=== PATIENT | female | born 1960 | race Caucasian/White ===

== ENCOUNTER 2022-12-27 10:11 | Emergency (ER) | payer MEDICAID, SELFPAY ==
--- NOTE | ~2022-12-27 | US_ITS ---
EXAMINATION: US VENOUS ULTRASOUND WITH DOPPLER LOWER EXTREMITY, RIGHT CLINICAL INFORMATION: Pain. Concern for clot COMPARISON: None available. TECHNIQUE: Ultrasound of the deep veins is performed from the hip to the calf with compression sonography and color and pulse Doppler assessment. Spectral analysis with color-flow imaging is performed. FINDINGS: There is normal venous compression and respiratory variation and augmented flow. The visualized common femoral vein, superficial femoral vein, profunda femoral vein, popliteal vein, and the trifurcation region shows no evidence of deep venous thrombosis. There is no significant popliteal fossa cyst. If the patient's symptoms persist, followup ultrasound in 5 days 7 days might be of value to exclude proximal propagation from a non-visualized calf vein. US/US venous duplex LE RT IMPRESSION: No DVT demonstrated in the right lower extremity.
[2022-12-27 10:30] VITALS: BP 182/87; PULSE 77; RESP 16; TEMP 36.7; O2SAT 96; BMI 37.1
--- NOTE | 2022-12-27 10:37 | ED_ITS ---
HPI - General Adult General Chief complaint: Extremity Problem Stated complaint: r knee pain Time Seen by Provider: 12/27/22 10:36 Source: patient and family (daughter) Mode of arrival: ambulatory Limitations: no limitations History of Present Illness HPI narrative: Patient is a 62 year old assigned female at with a history of varicose veins presenting to the emergency department today with right calf pain. Patient states that starting yesterday she began to have right calf pain that felt sharp in nature. Patient states that she has never followed up with a doctor for her veins. Patient denies any dizziness, lightheadedness, abdominal pain, nausea, vomiting, fever, chills, blurry vision, double vision, loss of vision, chest pain, difficulty breathing, shortness of breath, back pain, night sweats, pain with urination, increased urinary frequency, increased urinary urgency, blood in her urine or stool, syncope or a near syncopal episode, recent trauma or falls, bowel incontinence, bladder incontinence, bowel retention, bladder retention, or any other complaints at this time. Onset (ago): day(s) (1) Location: right and lower extremity Radiation: non-radiation Severity: mild Severity scale (1-10): 3 Quality: stabbing Pain Consistency: intermittent Relieving factors: none Exacerbating factors: none Associated symptoms: denies other symptoms Treatments prior to arrival: other (diclofenac gen) Related Data Allergies Allergy/AdvReac Type Severity Reaction Status Date / Time No Known Allergies Allergy Verified 12/27/22 10:29 Review of Systems Constitutional: Constitutional: Reports no additional constitutional complaints, Denies chills, Denies fever(s) and Denies night sweats Eyes: Eyes: Reports no additional eye complaints, Denies blurry vision, Denies change in vision, Denies diplopia, Denies eye discharge, Denies loss of vision and Denies eye pain ENT: Denies dizziness Cardiovascular: Cardiovascular: Reports no additional cardiovascular complaints, Denies chest pain, Denies lightheadedness, Denies Loss of Consciousn ess and Denies dyspnea Respiratory: Respiratory: Reports no additional respiratory complaints and Denies dyspnea Gastrointestinal: Gastrointestinal: Reports no additional gastrointestinal complaints, Denies abdominal pain, Denies melena, Denies hematochezia, Denies change in bowel habits and Denies change in stool character Genitourinary: Genitourinary: Denies hematuria, Denies urinary frequency, Denies dysuria, Denies urinary incontinence, Denies urinary hesitancy and Denies urinary urgency Musculoskeletal: Musculoskeletal: Reports no additional musculoskeletal complaints, Denies numbness and Denies tingling Comments: right lower leg pain Neurologic: Denies dizziness, Denies loss of vision, Denies numbness and Denies tingling Psychiatric: Psychiatric: Reports no additional psychiatric complaints Endocrine: Endocrine: Reports no additional endocrine complaints Hematologic/Lymphatic: Hematologic/Lymphatic: Reports no additional hematologic/lymphatic complaints Allergic/Immunologic: Allergic/Immunologic: Reports no additional allergic/immunologic complaints PMFSH Past Medical History Attestation statement: The following information was validated with the patient. (all information validated with the patient's daughter) Source: old records reviewed, obtained from family (patient's daughter) and nursing notes reviewed Social History Social History Advance Directives: No Physical Exam ED Vital Signs: Vital Signs - 24 hr 12/27/22 10:30 Temperature 98.1 F Pulse Rate 77 Respiratory Rate 16 Blood Pressure 182/87 H Pulse Oximetry 96 Oxygen Delivery Method Room Air BMI result Body Mass Index 37.1 Const General: cooperative, no acute distress, alert and awake Nutritional Appearance: well nourished Orientation/consciousness: patient oriented x3 Limitations: no limitations HENMT Head: Yes normal to inspection and Yes atraumatic Ears: hearing grossly normal bilaterally and external ears normal General nose exam: Normal external nose present, no nasal discharge noted and no epistaxis Face and sinus: Yes normal facial exam, No abrasion and No laceration Mouth: Normal oral and palatal mucosa present, no drooling and no muffled voice Eyes General: appearance normal, both eyes and all related structures Periorbital: periorbital findings normal Eyelids: Yes eyelids normal Conjunctivae: conjunctivae normal Pupils: Equal, round and reactive pupils present EOM: EOMs intact bilaterally Neck Neck: Yes normal visual inspection, Yes full ROM and Yes no lymphadenopathy Chest Chest palpation & inspection: normal inspection of the chest Resp Effort & Inspection: normal respiratory effort and able to speak in complete sentences Auscultation: clear to auscultation bilaterally Cardio Rate: regular rate GI Inspection: Yes normal to inspection Neuro General: patient oriented x3 and moves all extremities Cranial nerves: Yes Equal, round and reactive pupils present Cognition (Neuro): normal cognition Motor exam (neuro): 5/5 motor strength present throughout Sensory Exam: Normal double simultaneous stimulation for sensation Coordination: [id number] test normal Extrem General: Yes normal to inspection, Yes full ROM and Yes capillary refill normal Psych Appearance: grossly normal Mental Status: mental status grossly normal Affect: normal affect Attitude: cooperative Thought process: Normal thought process present Thought content: Normal thought content present Insight: Good insight present (Psych) Medical Decision Making Medical Decision Making MDM Narrative: Patient is a 62 year old assigned female at with a history of varicose veins presenting to the emergency department today with right lower leg pain. Patient's physical exam showed right lower leg varicose veins but was otherwise unremarkable. Patient's right lower leg US showed no acute process. I explained my physical exam findings as well as all test results to the patient and the patient's daughter. I answered all questions asked by the patient and the patient's daughter. I stressed the importance of the patient taking her medication as prescribed. I stressed the importance of the patient following up with her primary care provider and a vascular specialist. I stressed the importance of the patient returning to the emergency department immediately if her symptoms were to worsen or if she were to develop any dizziness, shortness of breath, difficulty breathing, chest pain, blurry vision, loss of vision, nausea, vomiting, abdominal pain, fever, chills, back pain, or any other complaints. Patient and the patient's daughter verbalized agreement and und erstanding with this treatment plan and discharge. Differential Diagnosis Differential Diagnoses: The differential diagnosis associated with the presentation includes right lower leg pain Independent Interpretation I performed an independent interpretation of an: Ultrasound Interpretation: My interpretation is in agreement with the radiologist's impression of this imaging study. EXAMINATION:? US VENOUS ULTRASOUND WITH DOPPLER LOWER EXTREMITY, RIGHT CLINICAL INFORMATION:? Pain. Concern for clot COMPARISON:? None available. TECHNIQUE: Ultrasound of the deep veins is performed from the hip to the calf with compression sonography and color and pulse Doppler assessment. Spectral analysis with color-flow imaging is performed. FINDINGS: There is normal venous compression and respiratory variation and augmented flow. The visualized common femoral vein, superficial femoral vein, profunda femoral vein, popliteal vein, and the trifurcation region shows no evidence of deep venous thrombosis. ? There is no significant popliteal fossa cyst. If the patient's symptoms persist, followup ultrasound in 5 days 7 days might be of value to exclude proximal propagation from a non-visualized calf vein. US/US venous duplex LE RT IMPRESSION: No DVT demonstrated in the right lower extremity. Dictated By: John Ring MD Signed By: Electronically signed by John Ring MD 12/27/22 1210 Independent Historian Clinical information obtained from an independent historian. History obtained from or confirmed by: Other (patient's daughter) Discharge Plan Discharge Clinical Impression: Varicose vein of leg Patient Disposition: Home, Self-Care Instructions: Venous Insufficiency (DC) Additional Instructions: Follow up with your primary care provider and a vascular specialist. Return to the emergency department immediately if your symptoms worsen or if you develop any dizziness, shortness of breath, difficulty breathing, chest pain, blurry vision, loss of vision, nausea, vomiting, abdominal pain, fever, chills, back pain, or any other complaints. Referrals: [facility] [Provider Group] (Call to establish and follow up with a vascular specialist. ) Angie Steven MD [Primary Care Provider] - Interventions: ED Discharge Assessment Last Done: 12/27/22 12:19 Discharge Date/Time: 12/27/22 12:19 Print Language: Korean
== END 2022-12-27 12:19 | disposition home or self-care (01) ==
PROVIDERS: Emergency Provider Emergency Medicine; PCP Internal Medicine
DX: I83.91 Asymptomatic varicose veins of right lower extremity (principal); M79.661 Pain in right lower leg
CPT/HCPCS: 93971; 99282; 99284

== ENCOUNTER 2023-09-26 04:41 | Inpatient (IN) | payer OTHER, SELFPAY ==
[2023-09-26] VITALS (13 sets, daily range): BP systolic 103–172; BP diastolic 51–95; PULSE 56–134; RESP 12–18; TEMP 36.3–36.7; O2SAT 94–98; BMI 34.4
--- NOTE | 2023-09-26 | ECG_ITS ---
Test Reason : CHEST PAIN Blood Pressure : / mmHG Vent. Rate : 118 BPM Atrial Rate : 000 BPM P-R Int : 000 ms QRS Dur : 088 ms QT Int : 330 ms P-R-T Axes : 000 -41 029 degrees QTc Int : 462 ms Atrial fibrillation with rapid ventricular response Left axis deviation Minimal voltage criteria for LVH, may be normal variant ( Mirza product ) Septal infarct , age undetermined Abnormal ECG No previous ECGs available Referred By: Generic ED Physician Electronically Signed By:NILSON KATZ MD
--- NOTE | ~2023-09-26 | XR_ITS ---
EXAMINATION: XR CHEST CLINICAL INFORMATION: Chest pain COMPARISON: None available. TECHNIQUE: Frontal view of the chest was obtained. FINDINGS: Cardiac silhouette is normal in size. The lungs are well aerated. There is no lobar consolidation. No pleural effusion or pneumothorax. Degenerative changes of the spine. XR/XR chest 1V IMPRESSION: No acute pulmonary pathology.
[2023-09-26 05:10] LABS: Basophils Absolute Auto 0.1 X10*3/uL (0.0-0.2); Basophils Percent Auto 0.8 % (0-2); Eosinophils Absolute Auto 0.2 X10*3/uL (0.0-0.4); Eosinophils Percent Auto 2.6 % (0-4); Hematocrit 42.7 % (37.0-47.0); Hemoglobin 14.6 g/dl (12.0-16.0); Imm Gran Abs Auto 0.01 X10*3/uL (0.00-0.03); Imm Gran Pct Auto 0.2 % (0.0-0.4); Lymphocytes Absolute Auto 2.6 X10*3/uL (1.2-4.9); Lymphocytes Percent Auto 38.9 % (20-40); MANUAL DIFF FLAG NO; Mean Corpuscular HGB Conc 34.2 g/dl (31.0-35.0); Mean Corpuscular Hemoglobin 32.3 pg (27.0-33.0); Mean Corpuscular Volume 94.5 fL (80.0-98.0); Mean Platelet Volume 9.2 fL (9.4-12.3); Monocytes Absolute Auto 0.8 X10*3/uL (0.1-1.2); Monocytes Percent Auto 12.4 % (2-11); Neutrophils Percent Auto 45.1 % (45-73); Platelet Count 289 X10*3/uL (160-400); Red Blood Count 4.52 X10*6/uL (4.20-5.50); Red Cell Distribution Width 11.6 % (11.0-16.0); White Blood Count 6.6 X10*3/uL (4.8-10.8)
--- NOTE | 2023-09-26 05:10 | ED.CHESTPAIN ---
HPI - Chest Pain General Chief Complaint: Arrhythmia/Palpitations Stated Complaint: cp with afib Time Seen by Provider: 09/26/23 04:54 Source: patient Mode of arrival: ambulatory Limitations: no limitations History of Present Illness HPI narrative: Patient history of hypertension on lisinopril history of paroxysmal AFib on aspirin suddenly woke up at 03:00 o'clock with palpitation and chest discomfort when EMS arrived heart rate was in 130s AFib in the ER also patient had same heart rate no shortness of breath no chest pain on arrival no fever no chills Related Data Allergies Allergy/AdvReac Type Severity Reaction Status Date / Time No Known Allergies Allergy Verified 09/26/23 04:49 Review of Systems Review of Systems: Yes all other systems are reviewed and are negative [facility] Past Medical History Medical History Paroxysmal A-fib Hypertension Social History Social History Advance Directives: No Advance Directives Information Provided: Yes Physical Exam Vital Signs: Vital Signs: Last Vital Signs Temp 97.9 F 09/26/23 07:08 Pulse 116 H 09/26/23 07:08 Resp 14 09/26/23 07:08 BP 115/72 09/26/23 07:08 Pulse Ox 96 09/26/23 07:08 O2 Del Method Room Air 09/26/23 07:08 BMI result Body Mass Index 34.4 Appearance: Alert. Oriented X3. No acute distress. Eyes: No pallor or icterus ENT: Pharynx normal. Oral Mucosa moist Neck: Normal inspection. Neck supple. CVS: Irregularly irregular heart rate tachycardia Pulses normal. Respiratory: No respiratory distress. Equal air entry bilateral, no wheezing/rales/rhonchi Abdomen: Soft and nontender. Bowel sounds are present, Skin: Skin warm and dry. Normal skin color. Normal skin turgor. Extremities: No lower extremity edema. No calf tenderness Neuro: Oriented X 3. No motor deficit. Medications Administered Generic Name Dose Route Start Last Admin Trade Name Freq PRN Reason Stop Dose Admin Diltiazem HCl 125 mg/ Sodium 125 mls @ 0 mls/hr 09/26/23 07:00 09/26/23 07:15 Chloride IVCONT 10 mg/hr .Q0M PEGGY 10 mls/hr Administration Protocol Per Protocol Discontinued Medications Generic Name Dose Route Start Last Admin Trade Name Martínez PRN Reason Stop Dose Admin Apixaban 5 mg 09/26/23 05:24 09/26/23 05:32 Apixaban 5 Mg Tablet PO 09/26/23 05:25 5 mg ONCE ONE Administration Diltiazem HCl 20 mg 09/26/23 05:22 09/26/23 05:27 Diltiazem Hcl 50 Mg/10 Ml Vial IVPUSH 09/26/23 05:23 20 mg STAT STA Administration Medical Decision Making Medical Decision Making 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 Lab Attestation statement: I reviewed the patient's lab results. 09/26/23 05:06 09/26/23 05:06 Labs: Lab Results 09/26/23 09/26/23 Range/Units 05:06 05:15 WBC 6.6 (4.8-10.8) X10*3/uL RBC 4.52 (4.20-5.50) X10*6/uL Hgb 14.6 (12.0-16.0) g/dl Hct 42.7 (37.0-47.0) % MCV 94.5 (80.0-98.0) fL MCH 32.3 (27.0-33.0) pg MCHC 34.2 (31.0-35.0) g/dl RDW 11.6 (11.0-16.0) % Plt Count 289 (160-400) X10*3/uL MPV 9.2 L (9.4-12.3) fL Immature Gran % (Auto) 0.2 (0.0-0.4) % Neut % (Auto) 45.1 (45-73) % Lymph % (Auto) 38.9 (20-40) % Hern[place] % (Auto) 12.4 H (2-11) % Eos % (Auto) 2.6 (0-4) % Baso % (Auto) 0.8 (0-2) % Lymph # (Auto) 2.6 (1.2-4.9) X10*3/uL Hernando # (Auto) 0.8 (0.1-1.2) X10*3/uL Eos # (Auto) 0.2 (0.0-0.4) X10*3/uL Baso # (Auto) 0.1 (0.0-0.2) X10*3/uL Abs Immat Gran (auto) 0.01 (0.00-0.03) X10*3/uL Absolute Neuts (auto) 3.0 (2.0-8.3) x10*3/uL Absolute Nucleated RBC 0.000 (0.0-0.012) X10*3/uL Nucleated RBC % (auto) 0.0 (0.0-0.2) /100WBC PT 12.3 (11.1-13.3) SEC INR 1.0 (0.9-1.1) APTT 32.9 (26.0-36.8) SEC Sodium 141 (135-145) mmol/L Potassium 4.1 (3.3-5.1) mmol/L Chloride 110 H (96-108) mmol/L Carbon Dioxide 22 (22-29) mmol/L Anion Gap 13 (12-20) BUN 13 (9-16) mg/dL Creatinine 0.85 (0.5-1.4) mg/dL Estim Creat Clear Calc 85.9 Estimated GFR > 60 Random Glucose 118 H (60-115) mg/dL Calcium 10.2 (8.4-10.2) mg/dL Magnesium 2.0 (1.6-2.6) mg/dL Total Bilirubin 0.4 (0.0-1.0) mg/dL AST 22 (5-31) U/L ALT 32 H (0-31) U/L Alkaline Phosphatase 110 (39-117) U/L Troponin I High Sens < 2.7 (<3.5-17.0) ng/L B-Natriuretic Peptide < 10 (<100) pg/mL Total Protein 7.1 (6.5-8.0) g/dL Albumin 4.3 (3.5-5.0) g/dL Independent Interpretation I performed an independent interpretation of an: EKG Interpretation: Atrial fibrillation with heart rate 118 beats per minute left axis deviation LVH no acute ST T wave changes no acute ischemia Critical Care Time Critical Care Time Critical Care Time: Yes Total Critical Care Time: 55 Attestation: The patient was critically ill with a high probability of imminent or life threatening deterioration. I spent greater than 60???minutes of discontinuous time evaluating the patient,delivering critical care at the bedside, discussing and evaluating pertinent data with consultants. Critical care time does not include time spent performing separately billable procedures or teaching. Total time spent performing critical care was 55???minutes. Discharge Plan Discharge Clinical Impression: Atrial fibrillation Patient Disposition: Admitted As Inpatient
[2023-09-26 05:25] LABS: Alanine Aminotransferase 32 U/L (0-31); Albumin Level 4.3 g/dL (3.5-5.0); Alkaline Phosphatase 110 U/L (39-117); Anion Gap 13 (12-20); Aspartate Amino Transferase 22 U/L (5-31); Bilirubin Total 0.4 mg/dL (0.0-1.0); Blood Urea Nitrogen 13 mg/dL (9-16); Calcium 10.2 mg/dL (8.4-10.2); Carbon Dioxide 22 mmol/L (22-29); Chloride 110 mmol/L (96-108); Creatinine Clr Calc Pharmacy 85.9; Estimated Glomerular Filt Rate > 60; Glucose Random 118 mg/dL (60-115); Potassium 4.1 mmol/L (3.3-5.1); Sodium 141 mmol/L (135-145); Total Protein 7.1 g/dL (6.5-8.0)
[2023-09-26 05:27] LABS: Prothrombin Time 12.3 SEC (11.1-13.3)
[2023-09-26] MEDS: dilTIAZem HCL 50 MG/10 ML VIAL 20 MG IVPUSH (05:27)
[2023-09-26 05:30] LABS: Partial Thromboplastin Time 32.9 SEC (26.0-36.8)
[2023-09-26 05:30] LABS: B Type Natriuretic Peptide < 10 pg/mL (<100)
[2023-09-26] MEDS: Apixaban 5 MG TABLET PO (05:32)
[2023-09-26 05:36] LABS: Troponin-I High Sensitivity < 2.7 ng/L (<3.5-17.0)
--- NOTE | 2023-09-26 07:00 | CA_ITS ---
Transthoracic Echocardiogram Patient (Last, First, Middle): Elida Mitchell, Gender: Female Date of : 1960 Age: 63 Procedure Date: 09/26/2023 Procedure Type: Transthoracic Echocardiogram Location: ER Height: 172.72 cm Weight: 102.06 kg BSA: 2.15 m2 Heart Rate: 60 bpm BP: 99 / 75 mmHg Energy Trading Analyst: SIMONE Referring MD: Chandni Aguayo MD Development Specialist: Luis Ascencio MD Symptoms: af Study Quality: Adequate w contrast ECG Rhythm: Sinus Conclusions: - Essentially normal study Findings Procedure Information Contrast agent, definity, is being given per protocol without apparent complications. The quality of the study was technically difficult. The study quality is limited by patients body habitus. Left Ventricle Normal left ventricular size, thickness, and systolic function. The visually estimated ejection fraction is between 65-70%. Spectral Doppler is indicative of a normal filling pattern. Right Ventricle Normal right ventricular cavity size and systolic function. Atria The left atrium is likely dilated. Interatrial shunt cannot be excluded. The right atrium is normal in size. Aortic Valve The aortic valve structure and function is likely normal. There is no aortic valve stenosis. There is no aortic valve regurgitation. Mitral Valve Likely normal mitral valve structure and function. There is trace mitral valve regurgitation. There is no mitral valve stenosis. Pulmonic Valve The pulmonic valve was not well visualized. Tricuspid Valve Likely normal tricuspid valve structure and function. Tricuspid regurgitation envelope is inadequate for calculation of right ventricular systolic pressure. Normal right atrial pressure. Great Vessels All visible segments of the aorta are normal in size. The pulmonary artery was not well visualized. There is no dilatation of the ascending aorta. Venous The inferior vena cava is normal in size and collapses greater than 50% with inspiration. Pericardium/Pleural There is no evidence of pericardial effusion. Prior Study Comparison No prior study available for comparison. Measurements 2D Linear Measurements IVSd: 0.94 0.6-0.9/0.6-1.0 cm LVIDd: 4.17 3.9-5.3/4.2-5.9 cm LVIDd Index: 1.94 2.4-3.2/2.2-3.1 cm/m2 LVIDs: 2.67 2.0-3.6 cm LVPWd: 0.64 0.7-1.1 cm LA Diam: 3.60 2.7-3.8/3.0-4.0 cm LAIDs Index: 1.67 1.5-2.3 cm/m2 LV Mass: 122.30 67-162/88-224 g LV Mass Index: 56.88 43-95/49-115 g/m2 LVOT Diam: 1.90 3.0+(-)1.3 cm 2D Systolic Function EF 4C: 74.40 >55% EF 2C: 64.40 >55% EF BiP: 70.90 >55% Mitral Valve MV Pk E: 1.03 MV PK A: 0.70 MV Decel Time: 218.00 E/A: 1.50 E'Lateral: 12.00 E'Medial: 6.53 E/E' Med: 15.80 E/E' Lat: 8.60 PHT: 64.00 MVA PHT: 3.44 Decel [place]: 4.75 Aortic Valve AoV Pk Bobby: 1.31 AoV Pk Grad: 7.00 ERICH: 2.30 LVOT LVOT Pk Bobby: 1.06 LVOT Mn Bobby: 0.72 LVOT VTI: 0.23 LVOT Pk Grad: 4.00 LVOT Mn Grad: 2.00 LVOT Diam: 1.90 LVOT Area: 2.84 Diastolic Function MV Pk E: 1.03 MV Pk A: 0.70 E/A: 1.50 E'Medial: 6.53 E/E' Med: 15.80 E' Laterial: 12.00 E/E' Lat: 8.60 Right Ventricle TAPSE (mm): 19.40 TVS' Bobby: 10.90 Tricuspid Valve TR Pk Bobby: 2.44 TR Pk Grad: 24.00 Great Vessels Aorta Sinus of Valsalva: 2.80 2.0-3.5 cm Ao Asc: 2.90 2.1-3.4 cm Updated in Other Vendor System with Status of Final Luis Ascencio MD electronically signed on 09/27/2023 12:03:46 PM with status of Final
[2023-09-26] MEDS: dilTIAZem HCL 125 MG in 0.9 % Sodium Chloride 100 ML 10 MG IVCONT (07:15)
--- NOTE | 2023-09-26 07:24 | PC.NURSE ---
Assumed care of this pt at 0700. Pt. alert and oriented x3. HR 111-116, Cardizem drip started at 10 ml/hr per protocol. Pt. resting quietly, no apparent distress. Will reassess.
--- NOTE | 2023-09-26 07:41 | PC.NURSE ---
Addendum entered by Larry Hogan RN 09/26/23 08:06: Error in documentation: NO CHANGE WAS MADE TO CARDIZEM DRIP RATE. DRIP RATE REMAINS AT 10 MG/HR. Original Note: HR 113, Cardizem drip increased to 15 mg/hr per protocol, will continue to observe.
[2023-09-26] MEDS: dilTIAZem HCL CD 120 MG CAP.ER.DEG PO (08:16)
--- NOTE | 2023-09-26 08:17 | PHA.MEDREC ---
Pharmacy Consult ? Medication Reconciliation Pharmacy has completed the medication reconciliation. SPOKE TO PATIENT AND CONFIRMED MEDICATION LIST.
--- NOTE | 2023-09-26 10:12 | PM.IMHP ---
History of Present Illness Date of Service: 09/26/23 Chief Complaint: palpitations 63yo F with hx HTN + hypothyroidism + NAFLD + prediabetes + 1 prior episode of atrial fibrillation (6 years ago, not on anticoagulation) who woke up from sleep this morning at 3am with palpitations and an odd feeling in her chest. No dyspnea and no lightheadedness. She called EMS and was found to have AF/RVR with rate in the 130s. She was brought to the ED and given 20 mg of IV diltiazem, then started on a drip that is currently running at 10 mg/hr. She remains in AF with ventricular rate in the 90s-100s. She still feels the palpitations. Review of Systems Review of Systems: Yes all other systems are reviewed and are negative [facility] Medical History Paroxysmal A-fib Hypertension Pertinent family history: Mother of CVA Social History Advance Directives: No Advance Directives Information Provided: Yes Meds Allergies Allergy/AdvReac Type Severity Reaction Status Date / Time No Known Allergies Allergy Verified 09/26/23 04:49 Active Medications: Current Medications Acetaminophen (Acetaminophen 325 Mg Tablet) 650 mg PO Q6H PRN PRN Reason: Pain, Mild (Pain Scale 1-3) Diltiazem HCl 125 mg/ Sodium (Chloride) 125 mls @ 0 mls/hr IVCONT .Q0M [facility]; Protocol Last Titration: 09/26/23 08:54 Dose: 10 mg/hr, 10 mls/hr Levothyroxine Sodium (Levothyroxine Sodium 75 Mcg Tablet) 75 mcg PO DAILY@0600 [facility] Lisinopril (Lisinopril 5 Mg Tablet) 5 mg PO DAILY [facility]; Protocol Ondansetron HCl (Ondansetron Hcl 4 Mg/2 Ml Vial) 4 mg IVPUSH Q8H PRN PRN Reason: Nausea and Vomiting Sodium Chloride (0.9 % Sodium Chloride Flush 3 Ml Syringe) 3 ml IVFLUSH QSHIFT [facility] Home Medications Medication Instructions Recorded Confirmed Last Taken Type levothyroxine 75 mcg tablet 75 mcg PO DAILY 09/26/23 09/26/23 09/25/23 History lisinopril 5 mg tablet 5 mg PO DAILY 09/26/23 09/26/23 09/25/23 History Physical Exam Vital Signs and Narrative: Vital Signs: Last Vital Signs Temp 97.9 F 09/26/23 07:08 Pulse 101 H 09/26/23 07:48 Resp 13 09/26/23 07:40 BP 116/75 09/26/23 07:48 Pulse Ox 96 09/26/23 07:08 O2 Del Method Room Air 09/26/23 07:08 BMI result Body Mass Index 34.4 Gen: in no acute distress HEENT: sclera anicteric, moist mucus membranes Neck: supple Lungs: clear to auscultation bilaterally Heart: irregular, no murmurs Abd: soft, non-tender, non-distended Ext: no edema Skin: warm/well-perfused Neuro: alert and oriented x3, no focal findings Psych: appropriate affect Results Labs 09/26/23 05:06 09/26/23 05:06 Labs: Laboratory Results - last 24 hr 09/26/23 09/26/23 05:06 05:15 MCV 94.5 MCH 32.3 MCHC 34.2 RDW 11.6 Plt Count 289 MPV 9.2 L Immature Gran % (Auto) 0.2 Neut % (Auto) 45.1 Lymph % (Auto) 38.9 [place] % (Auto) 12.4 H Eos % (Auto) 2.6 Baso % (Auto) 0.8 Lymph # (Auto) 2.6 [place] # (Auto) 0.8 Eos # (Auto) 0.2 Baso # (Auto) 0.1 Abs Immat Gran (auto) 0.01 Absolute Neuts (auto) 3.0 Absolute Nucleated RBC 0.000 Nucleated RBC % (auto) 0.0 PT 12.3 INR 1.0 APTT 32.9 Anion Gap 13 Estim Creat Clear Calc 85.9 Estimated GFR > 60 Random Glucose 118 H Calcium 10.2 Magnesium 2.0 Total Bilirubin 0.4 AST 22 ALT 32 H Alkaline Phosphatase 110 B-Natriuretic Peptide < 10 Total Protein 7.1 Albumin 4.3 TSH 3.60 Imaging Radiologist's Impressions: Impressions Chest X-Ray 09/26/23 08:07 IMPRESSION: No acute pulmonary pathology. Assessment and Plan (1) Atrial fibrillation: Status: Acute Plan 63yo F with hx HTN + hypothyroidism + NAFLD + prediabetes + 1 prior episode of atrial fibrillation 6 years ago presenting with symptomatic AF/RVR AF/RVR - Admit to telemetry, continue diltiazem drip, start anticoagulation ([id number] at least 2), consult Cardiology. TSH not over-suppressed. Magnesium normal. Does not drink EtOH. Check TTE. HTN - Continue lisinopril hypothyroidism - Continue LT4 prediabetes - Check A1c VTE ppx - Apixaban dispo - Eventually home code status - Full I anticipate that the patient will stay at least 2 midnights as an inpatient in the hospital due to the above reasons. It is neither reasonable nor safe to care for them in a less acute setting. Quality Stroke Does the patient have a stroke diagnosis?: No VTE Prior VTE?: No VTE Risk Level:: Medical - moderate - high VTE Device Contraindication: N/A - Device Ordered VTE Drug Contraindication: N/A - Med Ordered
[2023-09-26] MEDS: lisinopriL 5 MG TABLET PO (11:01)
[2023-09-26] MEDS: Levothyroxine Sodium 75 MCG TABLET PO (11:02)
[2023-09-26 11:05] LABS: Estimated Average Glucose 105 mg/dL; Hemoglobin A1c % 5.3 % (<6.0)
--- NOTE | 2023-09-26 11:13 | PC.NURSE ---
HR 92-93, Cardizem drip decreased to 5 mg/hr, will reassess. pt given po meds as documented. vs updated as documented.
--- NOTE | 2023-09-26 11:16 | P.CONCA_ITS ---
History of Present Illness History of Present Illness Date of Service: 09/26/23 Requesting physician: Chandni Aguayo Consult reason: atrial fibrillation Chief complaint: AF/RVR Narrative: I was consulted to see Elida in cardiology consultation today for new onset atrial fibrillation. She is a 63-year-old woman with prior history of hypertension for many years as per her greater than 15 years borderline diabetes. She said about 6-7 years ago she had rapid heart rate and gone to [place] [facility] and at that time she was having lot of symptoms of palpitation where she would feel rapid heart rate lasting for few seconds up to 10 minutes. However no diagnose were made at that time. Subsequently she has been doing well over the last 6-7 years. She was in usual state of health when she went to bed yesterday. No symptoms. She then woke up this morning on 3 and with rapid heart rate associated with some headache and mild chest pressure. She then immediately came to the emergency room. In the emergency room she was noted to be in atrial fibrillation with rapid ventricular response. She was then started on Cardizem drip. She says the symptoms of rapid heart rate improved but she still feels mild chest pressure. Also has mild headache. Blood pressures been controlled. Her labs including troponins and TSH and electrolytes are within normal limits. She denies any prior history of atrial fibrillation. Denies any prior history of vascular disease, congestive heart failure, stroke. Review of Systems 2 Constitutional: Constitutional: Reports no additional constitutional complaints Eyes: Eyes: Reports no additional eye complaints Cardiovascular: Cardiovascular: Reports chest pain, Denies leg edema, Denies lightheadedness, Denies Loss of Consciousness, Denies radiating jaw, neck or arm pain, Reports palpitations and Denies dyspnea Respiratory: Respiratory: Reports no additional respiratory complaints and Denies dyspnea Gastrointestinal: Gastrointestinal: Reports no additional gastrointestinal complaints Genitourinary: Genitourinary: Reports no additional female genitourinary complaints Musculoskeletal: Musculoskeletal: Reports no additional musculoskeletal complaints Integumentary/Breasts: Skin/Breast: Reports system reviewed and no additional complaints, except as docu Neurologic: Reports system reviewed and no additional complaints, except as documented Psychiatric: Psychiatric: Reports no additional psychiatric complaints Endocrine: Endocrine: Reports no additional endocrine complaints and Reports palpitations Hematologic/Lymphatic: Hematologic/Lymphatic: Reports no additional hematologic/lymphatic complaints [facility] Past Medical History Medical History Paroxysmal A-fib Hypertension Social History Social History Patient Tobacco Use Status: Never used Tobacco Advance Directives: No Advance Directives Information Provided: Yes Nutrition Risks: No Nutritional Risk Meds Allergies Allergy/AdvReac Type Severity Reaction Status Date / Time No Known Allergies Allergy Verified 09/26/23 04:49 Active Medications: Current Medications Acetaminophen (Acetaminophen 325 Mg Tablet) 650 mg PO Q6H PRN PRN Reason: Pain, Mild (Pain Scale 1-3) Apixaban (Apixaban 5 Mg Tablet) 5 mg PO BID [facility] Diltiazem HCl 125 mg/ Sodium (Chloride) 125 mls @ 0 mls/hr IVCONT .Q0M [facility]; Protocol Last Titration: 09/26/23 11:13 Dose: 5 mg/hr, 5 mls/hr Levothyroxine Sodium (Levothyroxine Sodium 75 Mcg Tablet) 75 mcg PO DAILY@0600 [facility] Last Admin: 09/26/23 11:02 Dose: 75 mcg Lisinopril (Lisinopril 5 Mg Tablet) 5 mg PO DAILY [facility]; Protocol Last Admin: 09/26/23 11:01 Dose: 5 mg Ondansetron HCl (Ondansetron Hcl 4 Mg/2 Ml Vial) 4 mg IVPUSH Q8H PRN PRN Reason: Nausea and Vomiting Sodium Chloride (0.9 % Sodium Chloride Flush 3 Ml Syringe) 3 ml IVFLUSH QSHIFT [facility] Home Medications Medication Instructions Recorded Confirmed Last Taken Type levothyroxine 75 mcg tablet 75 mcg PO DAILY 09/26/23 09/26/23 09/25/23 History lisinopril 5 mg tablet 5 mg PO DAILY 09/26/23 09/26/23 09/25/23 History Physical Exam 2 Vital Signs: Vital Signs: Last Vital Signs Temp 97.4 F 09/26/23 09:56 Pulse 93 09/26/23 11:12 Resp 18 09/26/23 11:12 BP 113/78 09/26/23 11:12 Pulse Ox 97 09/26/23 09:56 O2 Del Method Room Air 09/26/23 09:56 BMI result Body Mass Index 34.4 Const: General: cooperative, comfortable, no acute distress, alert, awake and anxious Nutritional Appearance: obese Orientation/consciousness: patient oriented x3 Limitations: no limitations HEENT: Head: Yes normocephalic and Yes atraumatic Neck: Neck: Yes trachea midline, Yes supple and Yes no JVD Resp: Effort & Inspection: normal respiratory effort Auscultation: clear to auscultation bilaterally Cardio: Jugular venous distension: no JVD Rate: regular rate Rhythm: a bnormal rhythm irregularly irregular Heart sounds: S1 normal heart sound present, S2 normal heart sound present, no click, no gallops, no murmurs and no rubs Peripheral pulses: Peripheral pulses 2+ throughout GI: Auscultation: normal bowel sounds Skin: General skin exam: no rashes or lesions noted Neuro: General: patient oriented x3 and no focal motor deficits Extrem: General: Yes no clubbing, cyanosis or edema Psych: Appearance: grossly normal Affect: Anxious affect present Objective Labs and Meds 09/26/23 05:06 09/26/23 05:06 Lab results: Laboratory Results - last 24 hr 09/26/23 09/26/23 05:06 05:15 WBC 6.6 RBC 4.52 Hgb 14.6 Hct 42.7 MCV 94.5 MCH 32.3 MCHC 34.2 RDW 11.6 Plt Count 289 MPV 9.2 L Immature Gran % (Auto) 0.2 Neut % (Auto) 45.1 Lymph % (Auto) 38.9 [place] % (Auto) 12.4 H Eos % (Auto) 2.6 Baso % (Auto) 0.8 Lymph # (Auto) 2.6 [place] # (Auto) 0.8 Eos # (Auto) 0.2 Baso # (Auto) 0.1 Abs Immat Gran (auto) 0.01 Absolute Neuts (auto) 3.0 Absolute Nucleated RBC 0.000 Nucleated RBC % (auto) 0.0 PT 12.3 INR 1.0 APTT 32.9 Sodium 141 Potassium 4.1 Chloride 110 H Carbon Dioxide 22 Anion Gap 13 BUN 13 Creatinine 0.85 Estim Creat Clear Calc 85.9 Estimated GFR > 60 Random Glucose 118 H Estimat Average Glucose 105 Hemoglobin A1c % 5.3 Calcium 10.2 Magnesium 2.0 Total Bilirubin 0.4 AST 22 ALT 32 H Alkaline Phosphatase 110 Troponin I High Sens < 2.7 B-Natriuretic Peptide < 10 Total Protein 7.1 Albumin 4.3 TSH 3.60 EKG shows atrial fibrillation with rapid ventricular response Imaging Radiologist's impression: Impressions Chest X-Ray 09/26/23 08:07 IMPRESSION: No acute pulmonary pathology. Assessment and Plan (1) Atrial fibrillation: Status: Acute New onset atrial fibrillation this middle-aged woman with longstanding history of hypertension prediabetes with risk factors of obesity and possible sleep apnea. She was very symptomatic on presentation with the symptoms have improved with rate control. However given that her onset is less than 12 hours reliably with no symptoms the last many months to years. I think we can attempt to pursue rhythm control approach. Will try to chemically cardiovert her with flecainide 150 mg x1 dose and in 1 hour she has no conversion can use either 150 mg. Continue IV Cardizem drip. She has been started on Eliquis 5 mg b.i.d. which is appropriate CHADSVASc score of 1-2. Echocardiogram to evaluate LV systolic and diastolic function and biatrial chamber size. Can wait till she has converted back to sinus rhythm and can be done as an outpatient. Pathophysiology of atrial fibrillation management was discussed in details. She showed understanding agreement. Will continue to follow with you Procedures Date of Service Date of Service: 09/26/23
--- NOTE | 2023-09-26 11:21 | PC.NURSE ---
pharmacy contacted for flecanide will send
[2023-09-26] MEDS: Flecainide Acetate 50 MG TABLET 150 MG PO ×2 (11:31→13:54)
--- NOTE | 2023-09-26 11:36 | PC.NURSE ---
ptmedicated per MAR
--- NOTE | 2023-09-26 12:30 | PC.NURSE ---
HR 67, b/p 99/75 Cardigalenm ip paused.- Dr. Pisano aware.
--- NOTE | 2023-09-26 13:34 | PC.NURSE ---
flecainide not available in ed pyxis. pharmacy was called and will bring med to ed.
--- NOTE | 2023-09-26 14:10 | PC.NURSE ---
Cardizem drip remains paused. HR 58, b/p 121/68
--- NOTE | 2023-09-26 15:02 | P.DS_ITS ---
DS: Providers Provider Date of Service: 09/26/23 Date of admission: 09/26/23 09:56 Date of discharge: 09/26/23 Primary care physician: Unknown Physician Consults: 09/26/23 09:55 Consult to Cardiology Routine Consulting Provider: [facility] Reason for consultation: symptomatic AF/RVR DS: Diagnosis Discharge Diagnosis (1) Paroxysmal atrial fibrillation: Status: Acute DS: Summary Hospital Course Hospital Course: from my admission H+P, 09/26/23: 63yo F with hx HTN + hypothyroidism + NAFLD + prediabetes + 1 prior episode of atrial fibrillation (6 years ago, not on anticoagulation) who woke up from sleep this morning at 3am with palpitations and an odd feeling in her chest. No dyspnea and no lightheadedness. She called EMS and was found to have AF/RVR with rate in the 130s. She was brought to the ED and given 20 mg of IV diltiazem, then started on a drip that is currently running at 10 mg/hr. She remains in AF with ventricular rate in the 90s-100s. She still feels the palpitations. Cardiology was consulted. Given clear onset of symptoms, rhythm control with flecainide was pursued. She converted to NSR. She was started on metoprolol succinate for rate control and apixaban for anticoagulation. She was discharged home and follow-up with [facility] will be arranged. Time Attestation Discharge coordination time: Greater than 30 minutes Quality: Safe Use of Opioids Does Pt have an Active Cancer Diagnosis on the Problem List?: No Quality: Stroke Does the patient have a stroke diagnosis?: No Physical Exam Vital Signs: Vital Signs: Last Vital Signs Temp 97.4 F 09/26/23 09:56 Pulse 58 09/26/23 13:45 Resp 18 09/26/23 11:12 BP 121/68 09/26/23 13:45 Pulse Ox 97 09/26/23 09:56 O2 Del Method Room Air 09/26/23 09:56 BMI result Body Mass Index 34.4 Gen: in no acute distress HEENT: sclera anicteric, moist mucus membranes Neck: supple Lungs: clear to auscultation bilaterally Heart: regular rate and rhythm, no murmurs Abd: soft, non-tender, non-distended Ext: no edema Skin: warm/well-perfused Neuro: alert and oriented x3, no focal findings Psych: appropriate affec DS: Data Data Completed and Pending Completed studies during hospitalization [Text1]: Laboratory Results WBC 6.6 X10*3/uL (4.8-10.8) 09/26/23 05:06 RBC 4.52 X10*6/uL (4.20-5.50) 09/26/23 05:06 Hgb 14.6 g/dl (12.0-16.0) 09/26/23 05:06 Hct 42.7 % (37.0-47.0) 09/26/23 05:06 MCV 94.5 fL (80.0-98.0) 09/26/23 05:06 MCH 32.3 pg (27.0-33.0) 09/26/23 05:06 MCHC 34.2 g/dl (31.0-35.0) 09/26/23 05:06 RDW 11.6 % (11.0-16.0) 09/26/23 05:06 Plt Count 289 X10*3/uL (160-400) 09/26/23 05:06 MPV 9.2 fL (9.4-12.3) L 09/26/23 05:06 Immature Gran % (Auto) 0.2 % (0.0-0.4) 09/26/23 05:06 Neut % (Auto) 45.1 % (45-73) 09/26/23 05:06 Lymph % (Auto) 38.9 % (20-40) 09/26/23 05:06 [place] % (Auto) 12.4 % (2-11) H 09/26/23 05:06 Eos % (Auto) 2.6 % (0-4) 09/26/23 05:06 Baso % (Auto) 0.8 % (0-2) 09/26/23 05:06 Lymph # (Auto) 2.6 X10*3/uL (1.2-4.9) 09/26/23 05:06 [place] # (Auto) 0.8 X10*3/uL (0.1-1.2) 09/26/23 05:06 Eos # (Auto) 0.2 X10*3/uL (0.0-0.4) 09/26/23 05:06 Baso # (Auto) 0.1 X10*3/uL (0.0-0.2) 09/26/23 05:06 Abs Immat Gran (auto) 0.01 X10*3/uL (0.00-0.03) 09/26/23 05:06 Absolute Neuts (auto) 3.0 x10*3/uL (2.0-8.3) 09/26/23 05:06 Absolute Nucleated RBC 0.000 X10*3/uL (0.0-0.012) 09/26/23 05:06 Nucleated RBC % (auto) 0.0 /100WBC (0.0-0.2) 09/26/23 05:06 PT 12.3 SEC (11.1-13.3) 09/26/23 05:15 INR 1.0 (0.9-1.1) 09/26/23 05:15 APTT 32.9 SEC (26.0-36.8) 09/26/23 05:15 Sodium 141 mmol/L (135-145) 09/26/23 05:06 Potassium 4.1 mmol/L (3.3-5.1) 09/26/23 05:06 Chloride 110 mmol/L (96-108) H 09/26/23 05:06 Carbon Dioxide 22 mmol/L (22-29) 09/26/23 05:06 Anion Gap 13 (12-20) 09/26/23 05:06 BUN 13 mg/dL (9-16) 09/26/23 05:06 Creatinine 0.85 mg/dL (0.5-1.4) 09/26/23 05:06 Estim Creat Clear Calc 85.9 09/26/23 05:06 Estimated GFR > 60 09/26/23 05:06 Random Glucose 118 mg/dL (60-115) H 09/26/23 05:06 Estimat Average Glucose 105 mg/dL 09/26/23 05:06 Hemoglobin A1c % 5.3 % (<6.0) 09/26/23 05:06 Calcium 10.2 mg/dL (8.4-10.2) 09/26/23 05:06 Magnesium 2.0 mg/dL (1.6-2.6) 09/26/23 05:06 Total Bilirubin 0.4 mg/dL (0.0-1.0) 09/26/23 05:06 AST 22 U/L (5-31) 09/26/23 05:06 ALT 32 U/L (0-31) H 09/26/23 05:06 Alkaline Phosphatase 110 U/L (39-117) 09/26/23 05:06 Troponin I High Sens < 2.7 ng/L (<3.5-17.0) 09/26/23 05:06 B-Natriuretic Peptide < 10 pg/mL (<100) 09/26/23 05:06 Total Protein 7.1 g/dL (6.5-8.0) 09/26/23 05:06 Albumin 4.3 g/dL (3.5-5.0) 09/26/23 05:06 TSH 3.60 uIU/mL (0.32-4.0) 09/26/23 05:06 Impressions Chest X-Ray 09/26/23 08:07 IMPRESSION: No acute pulmonary pathology. Discharge Plan Discharge Anticipated Discharge Date/Time: 09/26/23 14:59 Patient Disposition: Home, Self-Care Discharge Diagnosis: Paroxysmal atrial fibrillation Referrals: Elida Mayen PA [Physician Packaging Materials Inspector] - 1 Week Luis Ascencio MD [Physician] - 1 Week Physician,Vanessa Caruso [Primary Care Provider] - 1 Week Discharge Medications: New Eliquis 5 mg Tablet 5 mg PO BID Qty: 60 0RF metoprolol succinate 50 mg tablet extended release 24 hr 50 mg PO DAILY Qty: 30 0RF Continued levothyroxine 75 mcg tablet 75 mcg PO DAILY lisinopril 5 mg tablet 5 mg PO DAILY Discharge Orders: Discharge Order (Routine); Ordered 09/26/23 Ordered By: Chandni Aguayo Diet: Low salt diet Activity on Discharge: As tolerated Stand Alone Forms: Patient Portal Discharge page Care Plan Goals: prevention of AF recurrence and stroke Health Concerns: Paroxysmal atrial fibrillation Plan of Treatment: you are now in normal sinus rhythm rate control: metoprolol succinate 50 mg daily stroke prevention: apixaban 5 mg twice daily follow up with Dr Ascencio from [facility] [place] 1-2 weeks Please follow up with your primary care doctor within 1 week. Return to the hospital if you experience recurrent or worsening symptoms. Assessment: See Discharge Summary.
--- NOTE | 2023-09-26 15:31 | PC.NURSE ---
Pt was seen by Dr. Pisano and is now medically cleared for discharge. Pt aware of plan.
== END 2023-09-26 16:01 | disposition home or self-care (01) | DRG 201 ==
LOC: HO.ED 07:36 → HO.EDOVER 10:04 → HO.IMC 14:38 → HO.EDOVER 15:42
PROVIDERS: Internal Medicine; Admitting Provider Family Medicine; Emergency Provider Emergency Medicine; Visit Provider Family Medicine
DX: I48.0 Paroxysmal atrial fibrillation (principal); K76.0 Fatty (change of) liver, not elsewhere classified; E03.9 Hypothyroidism, unspecified; R73.03 Prediabetes; I10 Essential (primary) hypertension; Z79.890 Hormone replacement therapy; Z79.899 Other long term (current) drug therapy
CPT/HCPCS: 36415; 71045; 80053; 83036; 83735; 83880; 84443; 84484; 85025; 85610; 85730; 93005; 93306; 99222; 99285; Q9957

== ENCOUNTER → 2023-09-26 09:56 | Outpatient (BNV) | payer OTHER, SELFPAY | PROVIDERS: Admitting Provider Family Medicine; Emergency Provider Emergency Medicine; Visit Provider Internal Medicine Cardiovascular Disease | DX: I48.0 Paroxysmal atrial fibrillation (principal); R07.9 Chest pain, unspecified | CPT/HCPCS: 93010; 93306; 99222 ==

== ENCOUNTER → 2023-09-26 09:56 | Outpatient (BNV) | payer OTHER, SELFPAY | PROVIDERS: Admitting Provider Family Medicine; Emergency Provider Emergency Medicine; Visit Provider Family Medicine | DX: I48.0 Paroxysmal atrial fibrillation (principal); I10 Essential (primary) hypertension; E03.9 Hypothyroidism, unspecified | CPT/HCPCS: 99235; 99499 ==

== ENCOUNTER → 2023-10-18 09:32 | Outpatient (REF) | payer OTHER, SELFPAY ==
--- NOTE | 2023-10-18 09:35 | HM_ITS ---
Conclusion: 1. Patient was monitored for total period of 2 days and 23 hours 2. Baseline was normal sinus rhythm with average heart of 60 beats per minute 3. No significant pauses noted but frequent sinus bradycardia noted with heart rate below 60 beats per minute 60% of the time 4. Occasional PACs noted 5. Patient reported 1 event with rapid heart rate correlating with sinus rhythm MTDD
== END ==
LOC: HO.CARD 09:32
PROVIDERS: Visit Provider Internal Medicine Cardiovascular Disease
DX: E03.9 Hypothyroidism, unspecified (principal); I48.0 Paroxysmal atrial fibrillation; R40.0 Somnolence
CPT/HCPCS: 93242

== ENCOUNTER → 2023-10-18 09:35 | Outpatient (BNV) | payer OTHER, SELFPAY | PROVIDERS: Visit Provider Internal Medicine Cardiovascular Disease | DX: R00.1 Bradycardia, unspecified (principal) | CPT/HCPCS: 93244 ==

== ENCOUNTER → 2023-11-12 07:51 | Outpatient (REF) | payer OTHER, SELFPAY | LOC: HO.SL 07:51 | PROVIDERS: Visit Provider Internal Medicine Cardiovascular Disease | DX: G47.33 Obstructive sleep apnea (adult) (pediatric) (principal); R40.0 Somnolence | CPT/HCPCS: 95806 ==

== ENCOUNTER → 2023-11-12 08:05 | Outpatient (BNV) | payer OTHER, SELFPAY | PROVIDERS: Visit Provider Internal Medicine | DX: G47.33 Obstructive sleep apnea (adult) (pediatric) (principal) | CPT/HCPCS: 95806 ==

== ENCOUNTER 2023-12-02 10:38 | Emergency (ER) | payer MEDICAID, SELFPAY ==
[2023-12-02 11:16] VITALS: BP 115/54; BP 154/74; PULSE 134; PULSE 55; RESP 13; TEMP 36.7; O2SAT 96; BMI 37.5
[2023-12-02 11:20] VITALS: PULSE 53
--- NOTE | 2023-12-02 11:25 | ED.ARRPALP ---
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 She took an extra 100mg of metoprolol. EMS has an EKG of afib rate of 80. MD complaint: palpitations Onset (ago): hour(s) Duration: intermittent Severity: moderate Context: occurred during rest Arrhythmia history: atrial fibrillation Associated symptoms: denies other symptoms Related Data Home Medications ?Medication ?Instructions ?Recorded ?Confirmed levothyroxine 75 mcg tablet 75 mcg PO DAILY 09/26/23 09/26/23 lisinopril 5 mg tablet 5 mg PO DAILY 09/26/23 09/26/23 Previous Rx's ?Medication ?Instructions ?Recorded apixaban 5 mg tablet (Eliquis) 5 mg PO BID #60 tabs 09/26/23 metoprolol succinate 25 mg 25 mg PO DAILY #90 tabs 10/24/23 tablet,extended release 24 hr Allergies Allergy/AdvReac Type Severity Reaction Status Date / Time No Known Allergies Allergy Verified 12/02/23 11:19 Review of Systems Review of Systems: Yes all other systems are reviewed and are negative Neurologic: Denies Sensory deficit (Neuro) [facility] Past Medical History Medical History Paroxysmal A-fib Hypertension Social History Social History Patient Tobacco Use Status: Never used Tobacco Smoked in Last 30 Days: No Use of substances other than those prescribed or required for medical reasons: No Advance Directives: No Advance Directives Information Provided: No Physical Exam Vital Signs: Vital Signs: Last Vital Signs Temp 98.1 F 12/02/23 11:16 Pulse 55 12/02/23 11:16 Resp 13 12/02/23 11:16 BP 115/54 L 12/02/23 11:16 Pulse Ox 96 12/02/23 11:16 O2 Del Method Room Air 12/02/23 11:16 BMI result Body Mass Index 37.5 Const: General: healthy appearing Nutritional Appearance: average body habitus Orientation/consciousness: oriented to person and patient oriented x3 Limitations: no limitations HEENT: Head: Yes normal to inspection Ears: external ears normal General nose exam: Normal external nose present Mouth: Normal oral and palatal mucosa present and oropharynx normal Throat: Yes posterior oropharynx normal Eyes: General: appearance normal, both eyes and all related structures Neck: Other: supple Neck: Yes normal visual inspection Chest: Chest palpation & inspection: normal inspection of the chest Resp: Auscultation: clear to auscultation bilaterally Cardio: Jugular venous distension: no JVD Rate: regular rate Rhythm: regular rhythm Heart sounds: S1 normal heart sound present and S2 normal heart sound present GI: Inspection: Yes normal to inspection Palpation (GI): Soft to palpation, nontender and No hepatosplenomegaly present Auscultation: normal bowel sounds : General: Yes no CVA tenderness Back/Spine/Pelvis: Back: no CVA tenderness Skin: General skin exam: no rashes or lesions noted Neuro: General: oriented to person and patient oriented x3 Cranial nerves: Yes CN's II-XII intact bilaterally Motor exam (neuro): 5/5 motor strength present throughout Sensory Exam: No Sensory deficit (Neuro) Extrem: General: Yes normal to inspection Psych: Appearance: grossly normal Course Reevaluation(s) Reevaluation #1: EKG shows normal sinus rhythm extra metoprolol was not given Time: 13:30 Medications Administered Discontinued Medications Generic Name Dose Route Start Last Admin Trade Name Freq PRN Reason Stop Dose Admin Metoprolol Tartrate 5 mg 12/02/23 11:01 12/02/23 11:30 Metoprolol Tartrate 5 Mg/5 Ml Vial IVPUSH 12/02/23 11:02 Not Given ONCE ONE Medical Decision Making Differential Diagnosis Differential Diagnoses: The differential diagnosis associated with the presentation includes (atrial fibrillation, cardiac ischemia were considered) Admission/Observation Consideration of admission/observation: Escalation of care including admission/observation considered (upon arrival admission was considered) Lab Data MDM Lab Attestation statement: I reviewed the patient's lab results. 12/02/23 12:42 12/02/23 12:42 Labs: Lab Results 12/02/23 Range/Units 12:42 WBC 7.1 (4.8-10.8) X10*3/uL RBC 4.49 (4.20-5.50) X10*6/uL Hgb 14.6 (12.0-16.0) g/dl Hct 43.3 (37.0-47.0) % MCV 96.4 (80.0-98.0) fL MCH 32.5 (27.0-33.0) pg MCHC 33.7 (31.0-35.0) g/dl RDW 11.7 (11.0-16.0) % Plt Count 302 (160-400) X10*3/uL MPV 9.5 (9.4-12.3) fL Immature Gran % (Auto) 0.1 (0.0-0.4) % Neut % (Auto) 57.2 (45-73) % Lymph % (Auto) 30.2 (20-40) % Seward % (Auto) 10.6 (2-11) % Eos % (Auto) 1.3 (0-4) % Baso % (Auto) 0.6 (0-2) % Lymph # (Auto) 2.1 (1.2-4.9) X10*3/uL [place]ard # (Auto) 0.8 (0.1-1.2) X10*3/uL Eos # (Auto) 0.1 (0.0-0.4) X10*3/uL Baso # (Auto) 0.0 (0.0-0.2) X10*3/uL Abs Immat Gran (auto) 0.01 (0.00-0.03) X10*3/uL Absolute Neuts (auto) 4.1 (2.0-8.3) x10*3/uL Absolute Nucleated RBC 0.000 (0.0-0.012) X10*3/uL Nucleated RBC % (auto) 0.0 (0.0-0.2) /100WBC Sodium 141 (135-145) mmol/L Potassium 4.6 (3.3-5.1) mmol/L Chloride 108 (96-108) mmol/L Carbon Dioxide 30 H (22-29) mmol/L Anion Gap 8 L (12-20) BUN 16 (9-16) mg/dL Creatinine 0.77 (0.5-1.4) mg/dL Estim Creat Clear Calc 92.9 Estimated GFR > 60 Random Glucose 102 (60-115) mg/dL Calcium 10.6 H (8.4-10.2) mg/dL Troponin I High Sens 3.4 (<3.5-17.0) ng/L Independent Interpretation I performed an independent interpretation of an: EKG (sinus [address] or twave changes) Independent Historian Clinical information obtained from an independent historian. History obtained from or confirmed by: EMS Chronic Conditions Patient?s care impacted by: Other (atrial fibrillation) Discharge Plan Discharge Clinical Impression: Atrial fibrillation Patient Disposition: Home, Self-Care Instructions: A-fib (Atrial Fibrillation) (ED) Prescriptions: No Action metoprolol succinate 25 mg tablet extended release 24 hr 25 mg PO DAILY Qty: 90 3RF levothyroxine 75 mcg tablet 75 mcg PO DAILY lisinopril 5 mg tablet 5 mg PO DAILY Eliquis 5 mg Tablet 5 mg PO BID Qty: 60 0RF Referrals: Elida Mayen PA [Primary Care Provider] - 1 week Print Language: Divehi
[2023-12-02 12:45] LABS: MANUAL DIFF FLAG NO
[2023-12-02 12:50] LABS: Basophils Percent Auto 0.6 % (0-2); Eosinophils Absolute Auto 0.1 X10*3/uL (0.0-0.4); Eosinophils Percent Auto 1.3 % (0-4); Hematocrit 43.3 % (37.0-47.0); Hemoglobin 14.6 g/dl (12.0-16.0); Imm Gran Abs Auto 0.01 X10*3/uL (0.00-0.03); Imm Gran Pct Auto 0.1 % (0.0-0.4); Lymphocytes Absolute Auto 2.1 X10*3/uL (1.2-4.9); Lymphocytes Percent Auto 30.2 % (20-40); Mean Corpuscular HGB Conc 33.7 g/dl (31.0-35.0); Mean Corpuscular Hemoglobin 32.5 pg (27.0-33.0); Mean Corpuscular Volume 96.4 fL (80.0-98.0); Mean Platelet Volume 9.5 fL (9.4-12.3); Monocytes Absolute Auto 0.8 X10*3/uL (0.1-1.2); Monocytes Percent Auto 10.6 % (2-11); Neutrophils Absolute Auto 4.1 x10*3/uL (2.0-8.3); Neutrophils Percent Auto 57.2 % (45-73); Platelet Count 302 X10*3/uL (160-400); Red Blood Count 4.49 X10*6/uL (4.20-5.50); Red Cell Distribution Width 11.7 % (11.0-16.0); White Blood Count 7.1 X10*3/uL (4.8-10.8)
[2023-12-02 13:00] LABS: Anion Gap 8 (12-20); Blood Urea Nitrogen 16 mg/dL (9-16); Calcium 10.6 mg/dL (8.4-10.2); Carbon Dioxide 30 mmol/L (22-29); Chloride 108 mmol/L (96-108); Creatinine Clr Calc Pharmacy 92.9; Estimated Glomerular Filt Rate > 60; Glucose Random 102 mg/dL (60-115); Potassium 4.6 mmol/L (3.3-5.1); Sodium 141 mmol/L (135-145)
[2023-12-02 13:08] LABS: Troponin-I High Sensitivity 3.4 ng/L (<3.5-17.0)
[2023-12-02 13:37] VITALS: BP 112/61; PULSE 51; RESP 12; TEMP 36.3; O2SAT 97
[2023-12-02 14:08] VITALS: BP 112/61; PULSE 51; RESP 12; TEMP 36.3; O2SAT 97
== END 2023-12-02 14:27 | disposition home or self-care (01) ==
PROVIDERS: Emergency Provider Emergency Medicine; PCP Physician Assistant Medical
DX: I48.91 Unspecified atrial fibrillation (principal); I10 Essential (primary) hypertension
CPT/HCPCS: 36415; 80048; 84484; 85025; 99283; 99285

== ENCOUNTER 2023-12-17 14:40 | Outpatient (AMB) | payer OTHER, SELFPAY ==
[2023-12-17 14:55] VITALS: BP 120/70; PULSE 64; BMI 37.1
--- NOTE | 2023-12-17 14:55 | A.OFFVIS_ITS ---
Vital Signs 12/17/23 14:55 Height 5 ft 6 in Weight 230 lb 2.601 oz BMI 37.1 BP 120/70 Blood Pressure Location Lt brachial Position Sitting Pulse 64 Pulse Source Pulse Oximeter Intake Visit Reasons: r/s by pt from 327 [employer] Supervisor Required: Yes [employer] Supervisor Language: B[place]udian [employer] Supervisor Name: alexandra bravo [id number] Allergies No Known Allergies Allergy (Verified 12/17/23 14:57) Medication List - Last Reconciled 12/17/23 by BRUCE Moe apixaban (Eliquis) 5 mg PO BID levothyroxine 75 mcg PO DAILY metoprolol succinate ER 25 mg PO DAILY HPI HPI r/s by pt from 327: Details: Elida is a 63-year-old female with past medical history of obesity, hypertension, pre diabetes, who was recently admitted to [facility] with palpitations and found to have new onset atrial fibrillation. She was treated with flecainide 150 mg and converted back to sinus rhythm. She was started on metoprolol XL 50 mg daily as well as Eliquis for anticoagulation. Outpatient Holter monitor showed frequent sinus bradycardia and her metoprolol dose was reduced to 25 mg daily. She was seen in the emergency room again on 12/02/2023 for heart palpitations. Her EKG at that time did show sinus rhythm. She states the palpitations had stopped prior to that EKG. Today she reports that she has not had recurrent heart palpitations since the emergency room. She is fearful that it will come back. She continues on metoprolol and reports compliance. She has no bleeding issues with Eliquis. No chest discomfort at rest or with activity. No concerning shortness of breath, lightheadedness, presyncope, syncope, PND, orthopnea or edema. She reports good activity tolerance. 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 [facility] Medical History (Updated 12/17/23 @ 17:05 by BRUCE Moe) Paroxysmal A-fib Hypertension Family History Mother Stroke Social History Patient Tobacco Use Status: Never used Tobacco Review of Systems Const All systems reviewed & are unremarkable except as noted in HPI and below ENT Denies dizziness Card Denies chest pain, Denies chest pain at rest, Denies chest pain with activity, Denies rapid heart rate, Denies pedal edema, Denies edema, Denies leg edema, Denies lightheadedness, Reports palpitations, Denies dyspnea, Denies dyspnea on exertion and Denies orthopnea Resp Denies cough, Denies dyspnea and Denies dyspnea on exertion GI Denies hematochezia and Denies change in stool character Musc Denies abnormal gait, Denies limited range of motion, Denies muscle cramps, Denies muscle weakness, Denies numbness, Denies radiating pain into limb, Denies stiffness and Denies tingling Neuro Denies abnormal gait, Denies dizziness, Denies numbness and Denies tingling Endo Reports palpitations Physical Exam Vital Signs: Last Vital Signs Pulse 64 12/17/23 14:55 BP 120/70 12/17/23 14:55 BMI result Body Mass Index 37.1 Const General: cooperative, healthy appearing, comfortable and no acute distress Orientation/consciousness: patient oriented x3 Neck Neck: Yes normal visual inspection and Yes no JVD Chest Chest palpation & inspection: normal inspection of the chest Resp Effort & Inspection: normal respiratory effort Auscultation: clear to auscultation bilaterally, no rales, no rhonchi and no wheezes Cardio Jugular venous distension: no JVD Rate: regular rate Rhythm: regular rhythm Heart sounds: S1 normal heart sound present, S2 normal heart sound present, no murmurs and no rubs Neuro General: patient oriented x3 Extrem General: Yes normal to inspection, No no pedal edema and No calf tenderness Psych Appearance: grossly normal Mental Status: mental status grossly normal Speech and movement: Normal speech and movement present Assessment & Plan Assessment & Plan (1) Paroxysmal atrial fibrillation: Code(s): I48.0 - Paroxysmal atrial fibrillation Category: Medical Plan: New finding of paroxysmal atrial fibrillation. ER visit on 09/26/2023 with heart palpitations and found to have AFib RVR. She was given flecainide 150 mg daily and converted to sinus rhythm. She was started on metoprolol XL 50 mg daily. Echocardiogram showed normal study. An outpatient Holter monitor done 10/18/2023 for 3 days showed sinus rhythm with average heart rate 60, frequent sinus bradycardia with heart rate less than 60, 60% of the time, occasional PACs. Her metoprolol dose was reduced to 25 mg daily. On 12/02/2023 she had recurrent heart palpitations requiring ER visit. She had take an extra metoprolol at home. Once in the ER her EKG showed sinus rhythm. She has not had recurrent heart palpitations since that time. Reviewed with Dr. Ascencio. Will start on flecainide 50 mg b.i.d. to help suppress atrial fibrillation. Continue metoprolol. Office EKG in 1-2 weeks. Continue Eliquis for anticoagulation. Will obtain a exercise nuclear stress test to evaluate for any ischemia. Emergency care if needed for symptoms. Cardiology follow-up in 2 months, sooner if needed (2) Sleep apnea: Code(s): G47.30 - Sleep apnea, unspecified Category: Medical Plan: Sleep study done 11/20/23 shows moderately severe sleep apnea. She has been referred to pulmonology for eval and treatment. She has an appnt with Dr Moreno on 12/24/23. Diagnosis of sleep apnea and effects of sleep apnea on heart, afib reviewed with her. (3) Hypertension: Code(s): I10 - Essential (primary) hypertension Category: Medical Plan: Normal at this time. Continue Metoprolol. (4) Hospital discharge follow-up: Code(s): Z09 - Encounter for follow-up examination after completed treatment for conditions other than malignant neoplasm Category: Medical Plan: as above Plan Time spent on chart review, documentation, interview, assessment Orders: Orders NM cardiolite stress test Today I48.0 - Paroxysmal atrial fibrillation CA stress test Today I48.0 - Paroxysmal atrial fibrillation Medications: New flecainide 50 mg PO Q12H 60 tabs 5RF Refilled apixaban (Eliquis) 5 mg PO BID 60 tabs 5RF Coding Level of Care Code Est Pt Level 4 (05406) Diagnoses Paroxysmal atrial fibrillation I48.0 Sleep apnea G47.30 Hypertension I10 Hospital discharge follow-up Z09 Time Spent (min) 36
== END 2023-12-17 15:53 | disposition home or self-care (01) ==
PROVIDERS: Visit Provider Nurse Practitioner Family
DX: I48.0 Paroxysmal atrial fibrillation (principal); G47.30 Sleep apnea, unspecified; I10 Essential (primary) hypertension; Z09 Encounter for follow-up examination after completed treatment for conditions other than malignant neoplasm
CPT/HCPCS: 99214

== ENCOUNTER → 2023-12-17 14:40 | Outpatient (BNVA) | payer OTHER, SELFPAY | PROVIDERS: Visit Provider Nurse Practitioner Family | DX: I48.0 Paroxysmal atrial fibrillation (principal); I10 Essential (primary) hypertension; G47.30 Sleep apnea, unspecified; Z09 Encounter for follow-up examination after completed treatment for conditions other than malignant neoplasm | CPT/HCPCS: 99212 ==

== ENCOUNTER 2023-12-24 13:34 | Outpatient (AMB) | payer OTHER, SELFPAY ==
[2023-12-24 13:37] VITALS: BP 122/78; PULSE 66; O2SAT 97; BMI 37.2
--- NOTE | 2023-12-24 13:37 | MHC.OFFVIS ---
Vital Signs 12/24/23 13:37 Height 5 ft 6 in Weight 230 lb 6.129 oz BMI 37.2 BP 122/78 Blood Pressure Location Rt brachial Position Sitting Pulse 66 Pulse Source Doppler Pulse Oximetry (%) 97 Oxygen Delivery Method Room Air Intake Visit Reasons: Obstructive sleep apnea Allergies No Known Allergies Allergy (Verified 12/17/23 14:57) HPI HPI Obstructive sleep apnea: Details: 63-year-old lady with recent diagnosis of moderate obstructive sleep apnea referred for management of her sleep apnea symptoms. Patient is interested in trying CPAP therapy. COUNT INCLUDES [facility] Medical History (Updated 12/17/23 @ 17:05 by BRUCE Moe) Paroxysmal A-fib Hypertension Family History Mother Stroke Social History Patient Tobacco Use Status: Never used Tobacco Review of Systems Const Denies daytime sleepiness, Denies excessive sweating, Denies fatigue, Denies fever(s), Denies lethargy, Denies malaise, Denies night sweats, Denies snoring and Denies weight loss Eyes Denies blurry vision and Denies itchy eyes ENT Denies nasal congestion, Denies post nasal drip, Denies sinus pain, Denies sinus pressure and Denies other ( Thrush) Card Denies chest pain, Denies pedal edema, Denies dyspnea, Denies orthopnea and Denies paroxysmal nocturnal dyspnea Resp Denies cough, Denies hemoptysis, Denies excessive phlegm production, Denies dyspnea, Denies snoring and Denies wheezing GI Denies abdominal pain and Denies heartburn Musc Denies myalgias, Denies arthralgias and Denies joint swelling Skin/Breast Denies rash Neuro Denies memory loss and Denies seizure-like activity Psych Denies abnormal sleep pattern, Denies anxiety and Denies memory loss Endo Denies excessive sweating, Denies fatigue and Denies heat intolerance Vicente/Lymph Denies easy bruising Aller/Immun Denies itchy eyes, Denies seasonal rhinorrhea and Denies wheezing Physical Exam Vital Signs: Last Vital Signs Pulse 66 12/24/23 13:37 BP 122/78 12/24/23 13:37 Pulse Ox 97 12/24/23 13:37 Oxygen Delivery Method Room Air 12/24/23 13:37 BMI result Body Mass Index 37.2 Const General: no acute distress and alert Nutritional Appearance: obese Orientation/consciousness: Other orientation findings ( oriented) HEENT Head: Yes atraumatic Eyes General: appearance normal, both eyes and all related structures Sclerae: sclerae normal EOM: EOMs intact bilaterally Neck Neck: Yes supple Lymphatic: no lymphadenopathy noted Resp Effort & Inspection: normal respiratory effort and no use of accessory muscles Auscultation: clear to auscultation bilaterally Cardio Rate: regular rate Rhythm: regular rhythm Heart sounds: no gallops, no murmurs and no rubs Skin General skin exam: other ( warm) Extrem General: No clubbing, No cyanosis and No edema Assessment & Plan Assessment & Plan (1) Sleep apnea: Code(s): G47.30 - Sleep apnea, unspecified Category: Medical Plan: Results of sleep study reviewed, underlying moderate obstructive sleep apnea. Will start on APAP of 6-16 cm of water. Coding Level of Care Code New Pt Level 3 (12932) Diagnoses Sleep apnea G47.30
== END 2023-12-24 14:04 | disposition home or self-care (01) ==
PROVIDERS: PCP Internal Medicine; Referring Provider Internal Medicine Cardiovascular Disease; Visit Provider Internal Medicine Pulmonary Disease
DX: G47.30 Sleep apnea, unspecified (principal)
CPT/HCPCS: 99203

== ENCOUNTER → 2023-12-24 13:34 | Outpatient (BNVA) | payer OTHER, SELFPAY | PROVIDERS: PCP Internal Medicine; Referring Provider Internal Medicine Cardiovascular Disease; Visit Provider Internal Medicine Pulmonary Disease | DX: G47.30 Sleep apnea, unspecified (principal) | CPT/HCPCS: 99202 ==

== ENCOUNTER → 2024-02-10 07:49 | Outpatient (REF) | payer OTHER, SELFPAY ==
--- NOTE | ~2024-02-10 | NM_ITS ---
Exercise Myocardial perfusion study Indication: Shortness of breath, proximal and atrial fibrillation to evaluate for myocardial ischemia Technique: The patient was brought in for an exercise perfusion study on 02/10/2024. Patient performed exercise as per Johnathan protocol and was injected 35 mCi of sestamibi was given intravenously one target HR was achieved. Images were obtained using the SPECT gamma camera interlaced with the gating device. Images were obtained in supine position. Resting perfusion study was performed on 02/11/2024. Patient was administered 35 mCi of sestamibi intravenously at rest. Images were then obtained in supine position. Images obtained with and without CT attenuation. Total DLP 105 mGy-cm. Images were processed with the software and compared side to side in short axis, horizontal long axis and vertical long axis views. Findings: The stress perfusion study showed non attenuated images show normal uptake of radiotracer in all segments of LV myocardium. Attenuation corrected mildly reduced uptake in the apex of the LV myocardium.. The gated study shows normal LV systolic function with calculated LVEF of 66%. LV cavity is normal in size. The gated study shows normal systolic wall thickening and contraction of all segments. There is no transient ischemic dilation. Resting study shows no change in perfusion pattern compared to stress perfusion study. Gating at rest reveals normal systolic wall motion with ejection fraction at 72%. The findings are consistent with normal myocardial perfusion. NM/NM cardiolite stress test Impression: 1. Normal myocardial perfusion 2. Gated LVEF is 66% 3. Transient ischemic dilatation not present Stress EKG is negative for ischemia
--- NOTE | 2024-02-10 07:58 | CA_ITS ---
Acquisition Time: 2024-02-10 07:53:37 Total Exercise Time: 00:04:31 Test Indications: Abnormal ECG Medications: ELIQUIS LEVOTHYROXINE METOPROLOL Protocol: KECIA Max HR: 150 BPM 95% of Pred: 157 BPM Max BP: 168/078 mmHG Max Work Load: 4.6 METS Exercise stress test with exercise 4 min 31 sec of Kecia protocol stage 1 achieving 95% MPHR, with moderate shortness of breath, no chest discomfort, without arrythmia, with normotensive response to exercise, without EKG changes meeting criteria for ischemia. Nuclear images pending. In recovery her breathing quickly normalized. Test reviewed with Dr Ariza. Referred By: Valentina Daniel Overread By: VALENTINA DANIEL
== END ==
LOC: HO.CARD 07:49
PROVIDERS: Visit Provider Nurse Practitioner Family
DX: I48.0 Paroxysmal atrial fibrillation (principal)
CPT/HCPCS: 78452; 93017; A9500

== ENCOUNTER → 2024-02-10 07:58 | Outpatient (BNV) | payer OTHER, SELFPAY | PROVIDERS: Visit Provider Nurse Practitioner Family | DX: R06.02 Shortness of breath (principal); I48.0 Paroxysmal atrial fibrillation | CPT/HCPCS: 78452; 93016; 93018 ==

== ENCOUNTER 2024-02-18 14:23 | Outpatient (AMB) | payer OTHER, SELFPAY ==
--- NOTE | 2024-02-18 14:27 | A.OFFVIS_ITS ---
Vital Signs 02/18/24 14:28 Height 5 ft 6 in Weight 231 lb 14.821 oz BMI 37.4 BP 104/72 Blood Pressure Location Lt brachial Position Sitting Pulse 63 Pulse Source Monitor Intake Visit Reasons: 2 mth f/up w/ ekg on flecanide Director Of Sales Support Required: Yes Director Of Sales Support Services: Director Of Sales Support Present Director Of Sales Support Name: Geoff [id number], Chinese Allergies No Known Allergies Allergy (Verified 02/18/24 14:30) Medication List - Last Reconciled 02/18/24 by Valentina Daniel NP-C apixaban (Eliquis) 5 mg PO BID flecainide 50 mg PO Q12H levothyroxine 75 mcg PO DAILY metoprolol succinate ER 25 mg PO DAILY HPI HPI 2 mth f/up w/ ekg on flecanide: Details: Elida is a 64-year-old female with past medical history of obesity, hypertension, pre diabetes, who presented to [facility] 09/26/2023 with palpitations and found to have new onset atrial fibrillation. She was treated with flecainide 150 mg and converted back to sinus rhythm. She was started on metoprolol as well as Eliquis for anticoagulation. On follow-up visit she reported intermittent palpitations. At that time she was started on flecainide in addition to metoprolol XL 25 mg daily. Outpatient testing confirmed sleep apnea and she was referred to pulmonology for treatment. Today she reports that she has not had recurrent heart palpitations. She has no bleeding issues with Eliquis. No chest discomfort at rest or with activity. No concerning shortness of breath, lightheadedness, presyncope, syncope, PND, orthopnea or edema. She reports good activity tolerance. She has been trying to wear her CPAP mask but tells me she is not able to fall asleep with it. 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 [facility] Medical History Paroxysmal A-fib Hypertension Family History Mother Stroke Social History Patient Tobacco Use Status: Never used Tobacco Review of Systems Const All systems reviewed & are unremarkable except as noted in HPI and below ENT Denies dizziness Card Denies chest pain, Denies chest pain at rest, Denies chest pain with activity, Denies rapid heart rate, Denies pedal edema, Denies edema, Denies leg edema, Denies lightheadedness, Denies palpitations, Denies dyspnea, Denies dyspnea on exertion and Denies orthopnea Resp Denies cough, Denies dyspnea and Denies dyspnea on exertion GI Denies hematochezia and Denies change in stool character Musc Denies abnormal gait, Denies limited range of motion, Denies muscle cramps, Denies muscle weakness, Denies numbness, Denies radiating pain into limb, Denies stiffness and Denies tingling Neuro Denies abnormal gait, Denies dizziness, Denies numbness and Denies tingling Endo Denies palpitations Physical Exam Vital Signs: Last Vital Signs Pulse 63 02/18/24 14:28 BP 104/72 02/18/24 14:28 BMI result Body Mass Index 37.4 Const General: cooperative, healthy appearing, comfortable and no acute distress Orientation/consciousness: patient oriented x3 Neck Neck: Yes normal visual inspection and Yes no JVD Chest Chest palpation & inspection: normal inspection of the chest Resp Effort & Inspection: normal respiratory effort Auscultation: clear to auscultation bilaterally, no rales, no rhonchi and no wheezes Cardio Jugular venous distension: no JVD Rate: regular rate Rhythm: regular rhythm Heart sounds: S1 normal heart sound present, S2 normal heart sound present, no murmurs and no rubs Neuro General: patient oriented x3 Extrem General: Yes normal to inspection, No no pedal edema and No calf tenderness Psych Appearance: grossly normal Mental Status: mental status grossly normal Speech and movement: Normal speech and movement present Office Procedures EKG Details: Today, read by me, normal sinus rhythm, left axis deviation, rate 63, QTC 419 milliseconds [id number], Complete Assessment & Plan Assessment & Plan (1) Paroxysmal atrial fibrillation: Code(s): I48.0 - Paroxysmal atrial fibrillation Category: Medical Plan: Newer finding of paroxysmal atrial fibrillation. ER visit on 09/26/2023 with heart palpitations and found to have AFib RVR. She was given flecainide 150 mg daily and converted to sinus rhythm. She was started on metoprolol XL 50 mg daily. Echocardiogram showed normal study. An outpatient Holter monitor done 10/18/2023 for 3 days showed sinus rhythm with average heart rate 60, frequent sinus bradycardia with heart rate less than 60, 60% of the time, occasional PACs. Her metoprolol dose was reduced to 25 mg daily. On 12/02/2023 she had recurrent heart palpitations requiring ER visit. Once in the ER her EKG showed sinus rhythm. On follow-up visit she was started on flecainide 50 mg b.i.d. to help suppress atrial fibrillation. A nuclear stress test was done on 02/10/2024 with exercise 4.5 minutes with moderate shortness of breath and normal myocardial perfusion imaging. EKG done today shows sinus rhythm with left axis deviation, rate 63, QTC 419 milliseconds. Today she reports feeling very well with no concerning heart palpitations. Will continue current meds without change, flecainide and metoprolol, Continue Eliquis for anticoagulation. Cardiology follow-up with EKG in 6 months, sooner if needed (2) Sleep apnea: Code(s): G47.30 - Sleep apnea, unspecified Category: Medical Plan: Sleep study done 11/20/23 shows moderately severe sleep apnea. She was been referred to pulmonology for eval and treatment. She has seen Dr. Moreno and now has a mask but tells me she is not able to sleep with it. She feels the pressure is set to high. She does have an upcoming visit with pulmonology and will plan to discuss with them at that time. (3) Hypertension: Code(s): I10 - Essential (primary) hypertension Category: Medical Plan: Normal at this time. Continue Metoprolol. Plan Time spent on chart review, documentation, interview, assessment Coding Level of Care Code Est Pt Level 3 (76300) Diagnoses Paroxysmal atrial fibrillation I48.0 Sleep apnea G47.30 Hypertension I10 CPT Codes EKG - CPT: 87987-[id number], Complete ([id number]) Time Spent (min) 24
[2024-02-18 14:28] VITALS: BP 104/72; PULSE 63; BMI 37.4
== END 2024-02-18 14:59 | disposition home or self-care (01) ==
PROVIDERS: PCP Physician Assistant Medical; Visit Provider Nurse Practitioner Family
DX: I48.0 Paroxysmal atrial fibrillation (principal); G47.30 Sleep apnea, unspecified; I10 Essential (primary) hypertension
CPT/HCPCS: 93010; 99213

== ENCOUNTER → 2024-02-18 14:23 | Outpatient (BNVA) | payer OTHER, SELFPAY | PROVIDERS: PCP Physician Assistant Medical; Visit Provider Nurse Practitioner Family | DX: I48.0 Paroxysmal atrial fibrillation (principal); I10 Essential (primary) hypertension; G47.30 Sleep apnea, unspecified | CPT/HCPCS: 93005; 99212 ==

== ENCOUNTER 2024-03-03 15:18 | Outpatient (AMB) | payer OTHER, SELFPAY ==
[2024-03-03 15:22] VITALS: BP 114/62; PULSE 60; O2SAT 96; BMI 37.5
--- NOTE | 2024-03-03 15:22 | A.OFFVIS_ITS ---
Vital Signs 03/03/24 15:22 Height 5 ft 6 in Weight 232 lb 9.403 oz BMI 37.5 BP 114/62 Blood Pressure Location Rt brachial Position Sitting Pulse 60 Pulse Source Doppler Pulse Oximetry (%) 96 Oxygen Delivery Method Room Air Intake Visit Reasons: Obstructive sleep apnea Allergies No Known Allergies Allergy (Verified 03/03/24 15:27) HPI HPI Obstructive sleep apnea: Details: 63-year-old lady with recent diagnosis of moderate obstructive sleep apnea referred for management of her sleep apnea symptoms. After the last office visit patient has received and has tried using CPAP machine, however she was not successful in being able to fall asleep and user device. She is interested in trying a dental appliance. PFSH Medical History Paroxysmal A-fib Hypertension Family History Mother Stroke Social History Patient Tobacco Use Status: Never used Tobacco Review of Systems Const Reports daytime sleepiness, Denies excessive sweating, Reports fatigue, Denies fever(s), Denies lethargy, Denies malaise, Denies night sweats, Reports snoring and Denies weight loss Eyes Denies blurry vision and Denies itchy eyes ENT Denies nasal congestion, Denies post nasal drip, Denies sinus pain, Denies sinus pressure and Denies other ( Thrush) Card Denies chest pain, Denies pedal edema, Denies dyspnea, Denies orthopnea and Denies paroxysmal nocturnal dyspnea Resp Denies cough, Denies hemoptysis, Denies excessive phlegm production, Denies dyspnea, Reports snoring and Denies wheezing GI Denies abdominal pain and Denies heartburn Musc Denies myalgias, Denies arthralgias and Denies joint swelling Skin/Breast Denies rash Neuro Denies memory loss and Denies seizure-like activity Psych Denies abnormal sleep pattern, Denies anxiety and Denies memory loss Endo Denies excessive sweating, Reports fatigue and Denies heat intolerance Vicente/Lymph Denies easy bruising Aller/Immun Denies itchy eyes, Denies seasonal rhinorrhea and Denies wheezing Physical Exam Vital Signs: Last Vital Signs Pulse 60 03/03/24 15:22 BP 114/62 03/03/24 15:22 Pulse Ox 96 03/03/24 15:22 Oxygen Delivery Method Room Air 03/03/24 15:22 BMI result Body Mass Index 37.5 Const General: no acute distress and alert Nutritional Appearance: not obese Orientation/consciousness: Other orientation findings ( oriented) HEENT Head: Yes atraumatic Eyes General: appearance normal, both eyes and all related structures Sclerae: sclerae normal EOM: EOMs intact bilaterally Neck Neck: Yes supple Lymphatic: no lymphadenopathy noted Resp Effort & Inspection: normal respiratory effort and no use of accessory muscles Auscultation: clear to auscultation bilaterally Cardio Rate: regular rate Rhythm: regular rhythm Heart sounds: no gallops, no murmurs and no rubs Skin General skin exam: other ( warm) Extrem General: No clubbing, No cyanosis and No edema Assessment & Plan Assessment & Plan (1) Sleep apnea: Code(s): G47.30 - Sleep apnea, unspecified Category: Medical Plan: REID with patient unable to tolerate CPAP therapy. Discussed utilization of mandibular advancement device or ENT referral. Patient would like to wait on ENT referral until she tries mandibular advancement device. Coding Level of Care Code Est Pt Level 3 (55733) Diagnoses Sleep apnea G47.30
== END 2024-03-03 15:54 | disposition home or self-care (01) ==
PROVIDERS: PCP Physician Assistant Medical; Visit Provider Internal Medicine Pulmonary Disease
DX: G47.30 Sleep apnea, unspecified (principal)
CPT/HCPCS: 99213

== ENCOUNTER → 2024-03-03 15:18 | Outpatient (BNVA) | payer OTHER, SELFPAY | PROVIDERS: PCP Internal Medicine; Visit Provider Internal Medicine Pulmonary Disease | DX: G47.33 Obstructive sleep apnea (adult) (pediatric) (principal) | CPT/HCPCS: 99212 ==

== ENCOUNTER 2024-12-30 14:10 | Outpatient (AMB) | payer OTHER, SELFPAY ==
[2024-12-30 14:14] VITALS: BMI 37.4
--- NOTE | 2024-12-30 14:14 | A.OFFVIS_ITS ---
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 Patient reports pain began about 7 years ago. She has failed the last 3 months of conservative treatment which has included a home exercise program, physical therapy exercises, Tylenol and Voltaren gel. She is not able to take anti-inflammatory medicines because she is on Eliquis. She states that her knee pains are now interfering with her activities of daily living and her ability to sleep well through the night. She wishes to hold off on total knee replacement surgery if at all possible. She has had cortisone injections in the past which gave her minimal relief. Bag Press Operator Required: Yes Bag Press Operator Language: Solomon Islander Bag Press Operator Name: Christoph [id number] Allergies No Known Allergies Allergy (Verified 12/30/24 14:16) Medication List - Last Reconciled 12/30/24 by Ishmael Brown MD apixaban (Eliquis) 5 mg PO BID 90 days flecainide 50 mg PO Q12H levothyroxine 75 mcg PO DAILY metoprolol succinate ER 25 mg PO DAILY PFSH Medical History Paroxysmal A-fib Hypertension Family History Mother Stroke Social History Patient Tobacco Use Status: Never used Tobacco Physical Exam Vital Signs: BMI result Body Mass Index 37.4 Const Other: Well-nourished well-developed very friendly female awake alert and oriented x3 in no acute distress Extrem Other: Bilateral lower extremity examination shows good capillary refill, no skin lesions noted, normal sensation light touch Bilateral knee examination shows minimal effusions, palpable crepitus with range of motion, pain with range of motion, no instability Results Reviewed Results Reviewed: X-rays of the patient's bilateral knee show joint space narrowing, subchondral sclerosis, no acute bony abnormalities Assessment & Plan Assessment & Plan (1) Osteoarthritis of left knee: Code(s): M17.12 - Unilateral primary osteoarthritis, left knee Category: Medical (2) Osteoarthritis of right knee: Code(s): M17.11 - Unilateral primary osteoarthritis, right knee Category: Medical Plan Ms. Diaz presents with bilateral knee pains due to osteoarthritis. I had a lengthy discussion with the patient regarding the treatment options. She wishes to hold off on surgery if at all possible. I agree with this plan. I will see whether or not her insurance company will cover a viscosupplementation injection, such as Durolane, for both of her knees. I will see her back once the injections are available. Feel free to call me at any time should questions regarding her orthopedic management arise. Thank you very much for asking me to see this very friendly patient. I spent 22 minutes in reviewing the patient's records and imaging studies, seeing the patient and documenting in the medical record. Orders: Orders XR Knee Danish 3V 12/30/24 M25.561 - Pain in right knee, M25.562 - Pain in left knee Coding Level of Care Code New Pt Level 3 (18992) Complex EM visit Add On G2211 Diagnoses Osteoarthritis of left knee M17.12 Osteoarthritis of right knee M17.11
--- OUTSIDE RECORDS SUMMARY | 2024-12-30 15:23 | XMS_ITS | Clinical Summary ---
Author Organization [facility] Address [address] [place] [address] Phone Care Team Providers Care Bath House Attendant Name Role Phone Unavailable Primary Care Provider Unavailabl e Surgical History Surgery Date Site/Laterality Comments OTHER SURGICAL HISTORY 2007 PROCEDURE: [place] RESCJ PALATE/EXTENSIVE RESCJ LESION Medical History Medical History Date Comments HTN (hypertension) DX:HTN (hyper tension) Vitiligo DX:Vitiligo Hypercholesteremia DX:Hyperchole steremia; COMMENT: LDL 149 Subclinical hypothyroidism 01/18/2010 DX:Rice bclinical hypothyroidism Obesity 09/01/2010 DX:Obesity Family History Medical History Relation Name Comments Hypertension Mother Relation Name Status Comments Brother Alive Father Mother htn, cva Sister 1 Alive Sister 2 Alive Social History Tobacco Use Types Packs/Day Years Used Date Smoking Tobacco: Never Smokeless Tobacco: Never Alcohol Use Standard Drinks/Week Comments No 0 (1 standard drink = 0.6 oz pur e alcohol) Comments Unknown Sex and Gender Information Value Date Recorded Sex Assigned at Not on file Legal Sex Female 8:02 AM EST Gender Identity Not on file Sexual Orientation Not on file Obstetrics History Plan of Treatment Health Maintenance Due Date Last Done Comments Breast Cancer Screening 1961 Cervical Cancer Screening: P ap Smear 1982 Pneumococcal Vaccine: 50+ Ye ars (1 of 1 - PCV) 2011 Zoster Vaccines (1 of 2) 2011 DTaP,Tdap,and Td Vaccines (2 - Td or Tdap) 08/26/2014 08/26/2004 RSV Immunization Adult Patie nts (1 - Risk 60-74 years 1-dose series) 2021 COVID-19 Vaccine (1 - 2023-2 5 season) 2024 Cholesterol Screening (Lipid Panel) 09/18/2024 Colorectal Cancer Screening: Colonoscopy 09/18/2024 Depression Screening 09/18/2024 HIV Screening 09/18/2024 Hepatitis C Screening 09/18/2024 Hypertension/CHF/CAD Annual BMP Blood Test 09/18/2024 Social Influencers of Health Screening 09/18/2024 Influenza Vaccine (Season Ended) 2025 HIB Vaccines Aged Out No longer eligi ble based on patient's age to complete this topic HPV Vaccines Aged Out No longer eligi ble based on patient's age to complete this topic Hepatitis A Vaccines Aged Out No long er eligible based on patient's age to complete this topic Hepatitis B Vaccines Aged Out No long er eligible based on patient's age to complete this topic IPV Vaccines Aged Out No longer eligi ble based on patient's age to complete this topic MMR Vaccines Aged Out No longer eligi ble based on patient's age to complete this topic Meningococcal ACWY Vaccine Aged Out N o longer eligible based on patient's age to complete this topic Meningococcal B Vaccine Aged Out No l onger eligible based on patient's age to complete this topic Pneumococcal Vaccine: Pediat rics (0 to 5 Years) and At-Risk Patients (6 to 64 Years) Aged Out No longer eligi ble based on patient's age to complete this topic RSV Immunization Patients Un azeb 20 months Aged Out No longer eligible b ased on patient's age to complete this topic Varicella Vaccines Aged Out No longer eligible based on patient's age to complete this topic Insurance [facility] [employer]
== END 2024-12-30 14:45 | disposition home or self-care (01) ==
LOC: HO.HOS 14:11
PROVIDERS: PCP Physician Assistant Medical; Visit Provider Orthopaedic Surgery
DX: M17.0 Bilateral primary osteoarthritis of knee (principal)
CPT/HCPCS: 99203; G2211

== ENCOUNTER → 2024-12-30 14:16 | Outpatient (BNV) | payer OTHER, SELFPAY | PROVIDERS: Visit Provider Radiology Diagnostic Radiology | DX: M17.0 Bilateral primary osteoarthritis of knee (principal) | CPT/HCPCS: 73562 ==

== ENCOUNTER 2024-12-30 15:19 | Outpatient (REF) | payer OTHER, SELFPAY ==
--- NOTE | ~2024-12-30 | XR_ITS ---
XR KNEE DANISH 3V HISTORY: Bilateral knee pain. COMPARISON: None. TECHNIQUE: AP view bilateral knees standing, lateral and patellofemoral views bilateral knees. FINDINGS: RIGHT KNEE: No fracture, dislocation, or suspicious bone lesion. Moderate to severe medial compartment joint space narrowing, with marginal osteophytic spurring. Mild widening of the lateral compartment, with moderate marginal spurring present. Mild varus angulation of the joint. Moderate osteoarthritic changes also present in the patellofemoral joint with mild lateral patellar tilt. Spurring of the tibial spines. No evidence of joint effusion. Soft tissues appear normal. LEFT KNEE: No fracture, dislocation, or suspicious bone lesion. Moderate to severe medial compartment joint space narrowing, with marginal osteophytic spurring. Mild widening of the lateral compartment, with moderate marginal spurring present. Mild varus angulation of the joint. Moderate osteoarthritic changes also present in the patellofemoral joint with mild lateral patellar tilt. Spurring of the tibial spines. No evidence of joint effusion. Soft tissues appear normal. XR/XR Knee Danish 3V IMPRESSION: RIGHT KNEE: 1. Tricompartmental osteoarthritis, moderate to severe in the medial compartment. 2. No evidence of joint effusion. LEFT KNEE: 1. Tricompartmental osteoarthritis, moderate to severe in the medial compartment. 2. No evidence of joint effusion. Electronically signed by: Avinash Doe MD 12/30/2024 03:12 PM EDT
--- OUTSIDE RECORDS SUMMARY | 2024-12-31 15:53 | XMS_ITS | Clinical Summary ---
Author Organization [facility] Address [address] [place] [address] Phone Care Team Providers Care Business Services Assistant Name Role Phone Unavailable Primary Care Provider Unavailabl e Surgical History Surgery Date Site/Laterality Comments OTHER SURGICAL HISTORY 2007 PROCEDURE: [place] RESCJ PALATE/EXTENSIVE RESCJ LESION Medical History Medical [...] patient's age to complete this topic Insurance [facility]
== END 2024-12-30 15:20 | disposition home or self-care (01) ==
LOC: HO.HOSX 15:19
PROVIDERS: Visit Provider Orthopaedic Surgery
DX: M17.0 Bilateral primary osteoarthritis of knee (principal)
CPT/HCPCS: 73562

== ENCOUNTER 2025-01-21 08:42 | Outpatient (AMB) | payer OTHER, SELFPAY ==
[2025-01-21 08:50] VITALS: BMI 37.4
--- NOTE | 2025-01-21 08:50 | MHC.OFFVIS ---
Vital Signs 01/21/25 08:50 Height 5 ft 6 in Weight 232 lb BMI 37.4 Intake Visit Reasons: Inj-Bilateral Knee Euflexxa #1 Intake Note: Elida is a 65 year old female who presents today for her Bilateral Knee Euflexxa #1. The patient describes her knee pains as sharp in nature. She has tried Tylenol which gave her minimal relief. She is not able to take anti-inflammatory medicines because she is on Eliquis. She wishes to hold off on surgery if at all possible. Internet Sales Manager Required: Yes Internet Sales Manager Language: Guyanese Internet Sales Manager Services: Internet Sales Manager Offered & Declined Allergies No Known Allergies Allergy (Verified 01/21/25 08:51) Medication List - Last Reconciled 01/21/25 by Ishmael Brown MD apixaban (Eliquis) 5 mg PO BID 90 days flecainide 50 mg PO Q12H levothyroxine 75 mcg PO DAILY metoprolol succinate ER 25 mg PO DAILY PFSH Medical History Paroxysmal A-fib Hypertension Family History Mother Stroke Social History Patient Tobacco Use Status: Never used Tobacco Physical Exam Vital Signs: BMI result Body Mass Index 37.4 Const Other: Well-nourished well-developed very friendly female awake alert and oriented x3 in no acute distress Extrem Other: Bilateral lower extremity examination shows good capillary refill, no skin lesions noted, normal sensation light touch Bilateral knee examination shows minimal effusions, palpable crepitus with range of motion, pain with range of motion, Office Procedures AMB Joint Injection/Aspiration Joint Injection/Aspiration Primary Site: left knee Prep: site was prepped using aseptic technique Injected: 20 mg of (Euflexxa viscosupplementation) and 1% plain lidocaine Procedure: The patient tolerated the procedure well Coding 25206 - Large joint Procedure code (CPT) selection complete AMB Joint Injection/Aspiration Joint Injection/Aspiration Primary Site: right knee Prep: site was prepped using aseptic technique Injected: 20 mg of (Euflexxa viscosupplementation) and 1% plain lidocaine Procedure: The patient tolerated the procedure well Coding 81158 - Large joint Procedure code (CPT) selection complete Results Reviewed Results Reviewed: X-rays of the patient's bilateral knees taken previously show joint space narrowing, subchondral sclerosis, no acute bony abnormalities Assessment & Plan Assessment & Plan (1) Osteoarthritis of left knee: Code(s): M17.12 - Unilateral primary osteoarthritis, left knee Category: Medical (2) Osteoarthritis of right knee: Code(s): M17.11 - Unilateral primary osteoarthritis, right knee Category: Medical Plan Ms. Mitchell presents with bilateral knee pains due to osteoarthritis. The risks and benefits of a series of 3 Euflexxa viscosupplementation injections for both of her knees were discussed at length with the patient. The patient wishes to proceed. She tolerated the 1st set of injections well. She will follow up next week as scheduled. Feel free to call me at any time should questions regarding her orthopedic management arise. I spent 20 minutes in reviewing the patient's records and imaging studies, seeing the patient and documenting in the medical record. Orders: Orders AMB Joint Injection/Aspiration Today M17.12 - Unilateral primary osteoarthritis, left knee AMB Joint Injection/Aspiration Today M17.11 - Unilateral primary osteoarthritis, right knee Coding Level of Care Code Est Pt Level 3 (78964) Complex EM visit Add On G2211 Diagnoses Osteoarthritis of left knee M17.12 Osteoarthritis of right knee M17.11 CPT Codes Coding - 35033 Large joint: 04624 - Large joint ([id number]) Coding - 15197 Large joint: 37296 - Large joint ([id number])
--- OUTSIDE RECORDS SUMMARY | 2025-01-21 08:57 | XMS_ITS | Clinical Summary ---
Author Organization [facility] Address [address] [place] [address] Phone Care Team Providers Care Foundry Supervisor Name Role Phone Unavailable Primary Care Provider Unavailabl e Surgical History Surgery Date Site/Laterality Comments OTHER SURGICAL HISTORY 2007 PROCEDURE: [place] RESCJ PALATE/EXTENSIVE RESCJ LESION Medical History Medical [...] (2 - Td or Tdap) 08/26/2014 08/26/2004 COVID-19 Vaccine ( - 2023-2 5 season) 2024 Cholesterol Screening (Lipid Panel) 09/18/2024 Colorectal Cancer Screening: Colonoscopy 09/18/2024 Depression Screening 09/18/2024 HIV Screening 09/18/2024 Hepatitis C Screening 09/18/2024 Hypertension/CHF/CAD Annual BMP Blood Test 09/18/2024 Social Influencers of Health Screening 09/18/2024 Influenza Vaccine (Season Ended) 2025 RSV Immunization Adult Patie nts (1 - 1-dose 75+ series) 01/07/2036 HIB Vaccines Aged Out No longer eligi [...] patient's age to complete this topic Insurance [facility] [employer]
== END 2025-01-21 09:14 | disposition home or self-care (01) ==
LOC: HO.HOS 08:43
PROVIDERS: Visit Provider Orthopaedic Surgery
DX: M17.0 Bilateral primary osteoarthritis of knee (principal)
CPT/HCPCS: 20610; 99213

== ENCOUNTER → 2025-01-21 08:42 | Outpatient (BNVA) | payer OTHER, SELFPAY | PROVIDERS: Visit Provider Orthopaedic Surgery | DX: M17.0 Bilateral primary osteoarthritis of knee (principal) | CPT/HCPCS: 20610; 99212; J2003; J7323 ==

== ENCOUNTER 2025-01-27 12:41 | Outpatient (AMB) | payer OTHER, SELFPAY ==
--- NOTE | 2025-01-27 12:47 | MHC.OFFVIS ---
Vital Signs 01/27/25 12:48 Height 5 ft 6 in Weight 232 lb BMI 37.4 Intake Visit Reasons: Inj-Bilateral Knee Euflexxa #2 Intake Note: Elida is a 65 year old female who presents today for her second dose of bilateral knee Euflexxa gel injections. She states that she has gotten mild relief from the 1st set of injections. She continues to use topical diclofenac as needed. Yarder Engineer Services: Yarder Engineer Offered & Declined Allergies No Known Allergies Allergy (Verified 01/27/25 12:49) Medication List - Last Reconciled 01/27/25 by Ishmael Brown MD apixaban (Eliquis) 5 mg PO BID 90 days flecainide 50 mg PO Q12H levothyroxine 75 mcg PO DAILY metoprolol succinate ER 25 mg PO DAILY PFSH Medical History Paroxysmal A-fib Hypertension Family History Mother Stroke Social History Patient Tobacco Use Status: Never used Tobacco Physical Exam Vital Signs: BMI result Body Mass Index 37.4 Extrem Other: Bilateral knee examination shows minimal effusions, palpable crepitus with range of motion, pain with range of motion, no instability Office Procedures AMB Joint Injection/Aspiration Joint Injection/Aspiration Primary Site: left knee Prep: site was prepped using aseptic technique Injected: 20 mg of (Euflexxa viscosupplementation) and 1% plain lidocaine Procedure: The patient tolerated the procedure well Coding 03107 - Large joint Procedure code (CPT) selection complete AMB Joint Injection/Aspiration Joint Injection/Aspiration Primary Site: right knee Prep: site was prepped using aseptic technique Injected: 20 mg of (Euflexxa viscosupplementation) and 1% plain lidocaine Procedure: The patient tolerated the procedure well Coding 57155 - Large joint Procedure code (CPT) selection complete Results Reviewed Results Reviewed: X-rays of the patient's bilateral knee show joint space narrowing, subchondral sclerosis, no acute bony abnormalities Assessment & Plan Assessment & Plan (1) Osteoarthritis of left knee: Code(s): M17.12 - Unilateral primary osteoarthritis, left knee Category: Medical (2) Osteoarthritis of right knee: Code(s): M17.11 - Unilateral primary osteoarthritis, right knee Category: Medical Plan Ms. Diaz presents with bilateral knee pains due to osteoarthritis. The risks and benefits of a 2nd set of Euflexxa viscosupplementation injections were discussed at length with the patient. The patient wished to proceed. She tolerated the injections well. She will continue with her home exercise program. She will follow up next week as scheduled. Feel free to call me any time if questions regarding her orthopedic management arise. Orders: Orders AMB Joint Injection/Aspiration Today M17.12 - Unilateral primary osteoarthritis, left knee AMB Joint Injection/Aspiration Today M17.11 - Unilateral primary osteoarthritis, right knee Coding Level of Care Code Procedure Only Diagnoses Osteoarthritis of left knee M17.12 Osteoarthritis of right knee M17.11 CPT Codes Coding - 09391 Large joint: 65206 - Large joint ([id number]) Coding - 27495 Large joint: 26139 - Large joint ([id number])
[2025-01-27 12:48] VITALS: BMI 37.4
--- OUTSIDE RECORDS SUMMARY | 2025-01-27 13:10 | XMS_ITS | Clinical Summary ---
Author Organization [facility] Address [address] [place] [address] Phone Care Team Providers Care Locum Tenens Hospitalist Name Role Phone Unavailable Primary Care Provider Unavailabl e Surgical History Surgery Date Site/Laterality Comments OTHER SURGICAL HISTORY 2007 PROCEDURE: [place] RESCJ PALATE/EXTENSIVE RESCJ LESION Medical History Medical [...] patient's age to complete this topic Insurance [facility] HE[employer] PLAN
== END 2025-01-27 13:04 | disposition home or self-care (01) ==
LOC: HO.HOS 12:41
PROVIDERS: Visit Provider Orthopaedic Surgery
DX: M17.0 Bilateral primary osteoarthritis of knee (principal)
CPT/HCPCS: 20610

== ENCOUNTER → 2025-01-27 12:41 | Outpatient (BNVA) | payer OTHER, SELFPAY | PROVIDERS: Visit Provider Orthopaedic Surgery | DX: M17.0 Bilateral primary osteoarthritis of knee (principal) | CPT/HCPCS: 20610; J2003; J7323 ==

== ENCOUNTER 2025-02-03 11:15 | Outpatient (AMB) | payer OTHER, SELFPAY ==
--- NOTE | 2025-02-03 11:22 | A.OFFVIS_ITS ---
Vital Signs 02/03/25 11:23 Height 5 ft 6 in Weight 232 lb BMI 37.4 Intake Visit Reasons: Inj-Bilateral Knee Euflexxa #3 Intake Note: Elida is a 65 year old female who presents today for her third dose of bilateral knee Euflexxa gel injections. She states that she has gotten mild relief from the 1st to set of injections. She continues with her home exercise program. Acrobatic Rigger Services: Acrobatic Rigger Offered & Declined Allergies No Known Allergies Allergy (Verified 02/03/25 11:23) Medication List - Last Reconciled 02/03/25 by Ishmael Brown MD apixaban (Eliquis) 5 mg PO BID 90 days flecainide 50 mg PO Q12H levothyroxine 75 mcg PO DAILY metoprolol succinate ER 25 mg PO DAILY PFSH Medical History Paroxysmal A-fib Hypertension Family History Mother Stroke Social History (Reviewed 03/03/24 @ 15:27 by Monserrat Sparks [facility]) Patient Tobacco Use Status: Never used Tobacco Physical Exam Vital Signs: BMI result Body Mass Index 37.4 Const Other: Well-nourished well-developed very friendly female awake alert and oriented x3 in no acute distress Extrem Other: Bilateral knee examination shows minimal effusions, palpable crepitus with range of motion, pain with range of motion, no instability Office Procedures AMB Joint Injection/Aspiration Joint Injection/Aspiration Primary Site: left knee Prep: site was prepped using aseptic technique Injected: 20 mg of (Euflexxa viscosupplementation) and 1% plain lidocaine Procedure: The patient tolerated the procedure well Coding 91113 - Large joint Procedure code (CPT) selection complete AMB Joint Injection/Aspiration Joint Injection/Aspiration Primary Site: right knee Prep: site was prepped using aseptic technique Injected: 20 mg of (Euflexxa viscosupplementation) and 1% plain lidocaine Procedure: The patient tolerated the procedure well Coding 41789 - Large joint Procedure code (CPT) selection complete Results Reviewed Results Reviewed: X-rays of the patient's bilateral knees taken previously show joint space narrowing, subchondral sclerosis, no acute bony abnormalities Assessment & Plan Assessment & Plan (1) Osteoarthritis of left knee: Code(s): M17.12 - Unilateral primary osteoarthritis, left knee Category: Medical (2) Osteoarthritis of right knee: Code(s): M17.11 - Unilateral primary osteoarthritis, right knee Category: Medical Plan Ms. Diaz presents with bilateral knee pains due to osteoarthritis. The risks and benefits of a 3rd set of Euflexxa viscosupplementation injections were discussed at length with the patient. The patient wished to proceed. She tolerated the injections well. She will continue with her home exercise program. She will contact me prior to her follow-up appointment in 3 months should any questions or concerns arise. Feel free to call me at any time should questions regarding her orthopedic management arise. Orders: Orders AMB Joint Injection/Aspiration Today M17.12 - Unilateral primary osteoarthritis, left knee AMB Joint Injection/Aspiration Today M17.11 - Unilateral primary osteoarthritis, right knee Coding Level of Care Code Procedure Only Diagnoses Osteoarthritis of left knee M17.12 Osteoarthritis of right knee M17.11 CPT Codes Coding - 54475 Large joint: 06350 - Large joint ([id number]) Coding - 99432 Large joint: 78388 - Large joint ([id number])
[2025-02-03 11:23] VITALS: BMI 37.4
--- OUTSIDE RECORDS SUMMARY | 2025-02-03 12:55 | XMS_ITS | Clinical Summary ---
Author Organization [facility] Address [address] [place] [address] Phone Care Team Providers Care Director Fraud Name Role Phone Unavailable Primary Care Provider Unavailabl e Surgical History Surgery Date Site/Laterality Comments OTHER SURGICAL HISTORY 2007 PROCEDURE: [place] RESCJ PALATE/EXTENSIVE RESCJ LESION Medical History Medical [...] patient's age to complete this topic Insurance [facility] [place] [address]
== END 2025-02-03 12:28 | disposition home or self-care (01) ==
LOC: HO.HOS 11:16
PROVIDERS: Visit Provider Orthopaedic Surgery
DX: M17.0 Bilateral primary osteoarthritis of knee (principal)
CPT/HCPCS: 20610

== ENCOUNTER → 2025-02-03 11:15 | Outpatient (BNVA) | payer OTHER, SELFPAY | PROVIDERS: Visit Provider Orthopaedic Surgery | DX: M17.12 Unilateral primary osteoarthritis, left knee (principal); M17.11 Unilateral primary osteoarthritis, right knee | CPT/HCPCS: 20610; J2003; J7323 ==

== ENCOUNTER 2025-06-15 15:07 | Outpatient (REF) | payer OTHER, SELFPAY ==
--- NOTE | ~2025-06-15 | XR_ITS ---
XR KNEE DANISH 3V HISTORY: Bilateral knee arthritis and pain. COMPARISON: 12/30/2024 bilateral knees. TECHNIQUE: AP, lateral, and patellofemoral views of each knee. FINDINGS: RIGHT KNEE: No fracture, dislocation, or suspicious bone lesion. Moderate to severe medial compartment joint space narrowing, with marginal osteophytic spurring. Mild widening of the lateral compartment, with moderate marginal spurring present. Mild varus angulation of the joint. Moderate osteoarthritic changes also present in the patellofemoral joint. Spurring of the tibial spines. There is a moderate suprapatellar joint effusion present. Soft tissues appear normal. LEFT KNEE: No fracture, dislocation, or suspicious bone lesion. Moderate to severe medial compartment joint space narrowing, with marginal osteophytic spurring. Mild widening of the lateral compartment, with moderate marginal spurring present. Mild varus angulation of the joint. Moderate osteoarthritic changes also present in the patellofemoral joint. Spurring of the tibial spines. There is a small suprapatellar joint effusion present. Soft tissues appear normal. XR/XR Knee Danish 3V IMPRESSION: RIGHT KNEE: 1. No significant interval change. Tricompartmental osteoarthritis, moderate to severe in the medial compartment. 2. Moderate suprapatellar joint effusion. LEFT KNEE: 1. No significant interval change. Tricompartmental osteoarthritis, moderate to severe in the medial compartment. 2. Small suprapatellar joint effusion. Electronically signed by: Avinash Doe MD 06/15/2025 03:48 PM EDT
== END 2025-06-15 15:08 | disposition home or self-care (01) ==
LOC: HO.HOSX 15:07
PROVIDERS: Visit Provider Orthopaedic Surgery
DX: M17.0 Bilateral primary osteoarthritis of knee (principal)
CPT/HCPCS: 73562; 99212

== ENCOUNTER 2025-06-15 15:07 | Outpatient (AMB) | payer OTHER, SELFPAY ==
--- NOTE | 2025-06-15 15:11 | A.OFFVIS_ITS ---
Vital Signs 06/15/25 15:15 Height 5 ft 6 in Weight 240 lb BMI 38.7 Intake Visit Reasons: Bilateral knee pains Intake Note: Elida is a 65 year old female who presents with complaints of bilateral knee pains. She describes her pains as sharp in nature. She has failed the last 3 months of conservative treatment. She has had cortisone injections in the past which gave her minimal relief. She has also had Euflexxa viscosupplementation injections which gave her good relief. She wishes to hold off on surgery if at all possible. She also reports chronic low back pain which radiates down her left leg. She has not had back surgery in the past. The patient has tried Tylenol which gives her minimal relief. She is not able to take anti- inflammatory medicines because she is on Eliquis. Allergies No Known Allergies Allergy (Verified 06/15/25 15:15) Medication List - Last Reconciled 06/16/25 by Ishmael Brown MD apixaban (Eliquis) 5 mg PO BID 90 days flecainide 50 mg PO Q12H levothyroxine 75 mcg PO DAILY metoprolol succinate ER 25 mg PO DAILY PFSH Medical History Paroxysmal A-fib Hypertension Family History Mother Stroke Social History Patient Tobacco Use Status: Never used Tobacco Physical Exam Vital Signs: BMI result Body Mass Index 38.7 Const Other: Well-nourished well-developed very friendly female awake alert and oriented x3 in no acute distress Extrem Other: Bilateral knee examination shows minimal effusions, palpable crepitus with range of motion, pain with range of motion, no instability Results Reviewed Results Reviewed: X-rays of the patient's bilateral knee show moderate to severe joint space narrowing, subchondral sclerosis, no acute bony abnormalities Assessment & Plan Assessment & Plan (1) Osteoarthritis of left knee: Code(s): M17.12 - Unilateral primary osteoarthritis, left knee Category: Medical (2) Osteoarthritis of right knee: Code(s): M17.11 - Unilateral primary osteoarthritis, right knee Category: Medical Plan Ms. Mitchell presents with bilateral knee pains due to osteoarthritis. I had a lengthy discussion with the patient regarding the treatment options. She wishes to hold off on surgery if at all possible. I agree with this plan. I will see if her insurance company will cover a another series of 3 Euflexxa injections for both of her knees. I will see her back once the injections are approved. I will also refer her to our pain management department for further evaluation of her chronic low back pain. Feel free to call me at any time should questions regarding her orthopedic management arise. I spent 20 minutes in reviewing the patient's records and imaging studies, seeing the patient and documenting in the medical record. Orders: Orders XR Knee Danish 3V 06/15/25 M17.11 - Unilateral primary osteoarthritis, right knee, M17.12 - Unilateral primary osteoarthritis, left knee Referrals Pain Management Referral G89.29 - Other chronic pain, M54.50 - Low back pain, unspecified Coding Level of Care Code Est Pt Level 3 (55777) Complex EM visit Add On G2211 Diagnoses Osteoarthritis of left knee M17.12 Osteoarthritis of right knee M17.11
[2025-06-15 15:15] VITALS: BMI 38.7
--- OUTSIDE RECORDS SUMMARY | 2025-06-15 20:19 | XMS_ITS | Clinical Summary ---
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 Scientific Programmer Analyst Name Role Phone Unavailable Primary Care Provider Unavailabl e Surgical History Surgery Date Site/Laterality Comments OTHER SURGICAL HISTORY 2007 PROCEDURE: [place] RESCJ PALATE/EXTENSIVE RESCJ LESION Medical History Medical [...] Last Done Comments Breast Cancer Screening 1961 Colorectal Cancer Screening: Colonoscopy 1961 Cervical Cancer Screening: P ap Smear 1982 Pneumococcal Vaccine: 50+ Ye ars (1 of 1 - PCV) 2011 Zoster Vaccines (1 of 2) 2011 DTaP,Tdap,and Td Vaccines (2 - Td or Tdap) 08/26/2014 08/26/2004 Depression Screening 08/26/2024 Cholesterol Screening (Lipid Panel) 09/18/2024 HIV Screening 09/18/2024 Hepatitis C Screening 09/18/2024 Hypertension/CHF/CAD Annual BMP Blood Test 09/18/2024 Social Influencers of Health Screening 09/18/2024 COVID-19 Vaccine (1 - 2023-2 5 season) 2025 Influenza Vaccine (#1) 2025 RSV Immunization Adult Patie nts (1 [...] patient's age to complete this topic Insurance [facility] HEALTH PLAN
== END 2025-06-15 15:56 | disposition home or self-care (01) ==
LOC: HO.HOS 15:07
PROVIDERS: Visit Provider Orthopaedic Surgery
DX: M17.0 Bilateral primary osteoarthritis of knee (principal)
CPT/HCPCS: 99213

== ENCOUNTER → 2025-06-15 15:26 | Outpatient (BNV) | payer OTHER, SELFPAY | PROVIDERS: Visit Provider Radiology Diagnostic Radiology | DX: M17.0 Bilateral primary osteoarthritis of knee (principal) | CPT/HCPCS: 73562 ==

== ENCOUNTER 2025-07-14 11:21 | Outpatient (AMB) | payer OTHER, SELFPAY ==
[2025-07-14 11:22] VITALS: BP 144/72; PULSE 65; RESP 16; O2SAT 98; BMI 38.7
--- NOTE | 2025-07-14 11:22 | A.OFFVIS_ITS ---
Vital Signs 07/14/25 11:22 Height 5 ft 6 in Weight 240 lb BMI 38.7 BP 144/72 H Blood Pressure Location Rt brachial Position Sitting Respiration 16 Pulse 65 Pulse Source Pulse Oximeter Pulse Oximetry (%) 98 Oxygen Delivery Method Room Air Intake Visit Reasons: Low back pain, unspecified Assistant Commissioner Required: No Accompanied by: Self / Same As Patient Allergies No Known Allergies Allergy (Verified 07/14/25 11:28) HPI Comments Details: Elida is very pleasant 65 years old female who presents in my office with complains on lower back pain mostly on the left side however with radiation of the pain into bilateral lower extremities to the level of bilateral thighs and slightly below the knee on the left lower extremity. She also reports sensation of numbness in bilateral lower extremities. She reported that her pain started more than 2 years ago. She believes that her pain is related to herniated in her spine. She had an MRI of the lumbar spine results of which dictated as below. She reports that lying down alleviates her pain however prolonged laying results in numbness sensation in bilateral lower extremities. She reports that flexing forward alleviates her pain and flexing backwards aggravate her pain. Walking and standing aggravate her pain. She is unable to sleep normally because of her pain she can do activities of daily living and she can take care of herself but she can not function normally. 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 She reports that movements aggravate her pain and topical medication make her pain slightly better. In terms of tissue damage she reports her pain as nagging and dull sensation. She had physical therapy in May of this year she had multiple sessions with minimal pain improvement she continues home exercise program. She tried chiropractic manipulation in October of 2024 and did not have any improvement from chiropractic manipulations. Her past medical history significant for hypertension liver disease and heart palpitations. She denies any surgical history. She denies smoking cigarettes denies drinking alcohol denies caffeinated beverages denies recreational drugs. [facility] Medical History Paroxysmal A-fib Hypertension Family History Mother Stroke Social History Patient Tobacco Use Status: Never used Tobacco Review of Systems Const All systems reviewed & are unremarkable except as noted in HPI and below ENT Reports Normal hearing present Neuro Reports Normal hearing present, Denies Abnormal speech present, Denies confusion and Denies Sensory deficit (Neuro) Psych Denies confusion Physical Exam Vital Signs: Last Vital Signs Pulse 65 07/14/25 11:22 Resp 16 07/14/25 11:22 BP 144/72 H 07/14/25 11:22 Pulse Ox 98 07/14/25 11:22 Oxygen Delivery Method Room Air 07/14/25 11:22 BMI result Body Mass Index 38.7 Const General: no acute distress; No confusion Nutritional Appearance: obese morbidly obese Orientation/consciousness: patient oriented x3 and No confusion Eyes General: appearance normal, both eyes and all related structures Pupils: Equal, round and reactive pupils present EOM: EOMs intact bilaterally Neck Neck: Yes full ROM Chest Chest palpation & inspection: normal inspection of the chest Resp Effort & Inspection: normal respiratory effort, able to speak in complete sentences, normal respiratory pattern, no audible wheezes and no cough Cardio Jugular venous distension: no JVD GI Inspection: Yes normal to inspection Back/Spine/Pelvis Other: Able to stand on bilateral tiptoes in bilateral heels without difficulty. Able to lift 1st toe on both bilateral lower extremities in separation of the rest of the toes. SLR is negative bilaterally. Yaya test is positive on the left, pelvic compression test and pelvic distraction test is negative on the left, Gaenslen test is positive on the left and negative on the right. Loading test is positive bilaterally more on the left and less on the right. There is tenderness on palpation in the projection of the left more than right paraspinal regions of the lumbar spine. Neuro General: patient oriented x3, gait normal and No confusion Cranial nerves: Yes CN's II-XII intact bilaterally, Yes Equal, round and reactive pupils present, Yes Normal hearing present and Yes Ability to bilaterally elevate shoulders present Speech: No Abnormal speech present Gait exam (Neuro): Normal gait present Motor exam (neuro): 5/5 motor strength present throughout Sensory Exam: No Sensory deficit (Neuro) Extrem General: No pedal edema Psych Speech and movement: Normal speech and movement present Affect: normal affect Attitude: cooperative Thought process: Normal thought process present Thought content: Normal thought content present Insight: Good insight present (Psych) Judgement: Good judgement present (Psych) Results Reviewed Results Reviewed: MRI lumbar spine without contrast MRI of the lumbar spine without contrast findings: Small T2 hyperintense renal cortical lesion suggestive of cysts. No other paraspinal soft tissue findings. Mild Baastrup disease, straightening of the typical lumbar lordosis. No compression deformity. Mild Modic signal along the inferior L2 endplate. Normal position of the conus at L1. Lumbar disc levels: L1-L2: Mild endplate irregularity. Minimal symmetric disc bulge. Mild degenerative irregularity of the facet joints. No spinal or foraminal stenosis. L2-L3: Moderate endplate irregularity and disc space height loss. Small disc bulge slightly eccentric to the right and small endplate osteophytes. Minimal d egenerative irregularity of the facet joints. No significant spinal canal or foraminal stenosis. L3-L4: Slight anterolisthesis. Mild disc space height loss and endplate irregularity. Moderate symmetric disc bulge and mild bilateral facet arthropathy and ligamentum flavum hypertrophy. Mild spinal stenosis. No significant foraminal stenosis. L4-5: Small symmetric disc bulge and mild bilateral facet arthropathy. Slight widening of the right facet joint suggesting mild hypermobility. No significant spinal or foraminal stenosis. L5-S1: Small disc bulge eccentric to the left. Small superior projecting extrusion of the left foraminal zone which contacts the exiting L5 nerve root and contributes to mild left foraminal stenosis. Mild bilateral facet arthropathy with osteophytes arising from the facet joints resulting in mild right foraminal stenosis. No spinal stenosis. Impression: Multilevel degenerative changes of the lumbar spine as dictated above. Assessment & Plan Assessment & Plan (1) Chronic pain syndrome: Code(s): G89.4 - Chronic pain syndrome Category: Medical (2) Disc degeneration, lumbar: Code(s): M51.369 - Other intervertebral disc degeneration, lumbar region without mention of lumbar back pain or lower extremity pain Category: Medical (3) Spondylosis of lumbar region without myelopathy or radiculopathy: Code(s): M47.816 - Spondylosis without myelopathy or radiculopathy, lumbar region Category: Medical Plan Unlikely the pain of this patient is stemming out of the foraminal stenosis which is dictated as mild. My differential diagnosis for this patient would be between the spondylosis lumbar without myelopathy or radiculopathy versus sacroiliac joint pathology. I offered the patient diagnostic L3, L4, dorsal ramus L5 bilateral medial branch block to be performed to diagnose her pain. I briefly described the risks and benefits of the procedure and the reason why the procedure is being performed. Patient agreed to go for the procedure. If this procedure will not result in significant pain relief next diagnostic sacroiliac joint injection could be tried. Coding Level of Care Code New Pt Level 3 (02193) Diagnoses Chronic pain syndrome G89.4 Disc degeneration, lumbar M51.369 Spondylosis of lumbar region without myelopathy or radiculopathy M47.816
== END 2025-07-14 11:57 | disposition home or self-care (01) ==
LOC: HO.PMC 11:21
PROVIDERS: Visit Provider Anesthesiology
DX: G89.4 Chronic pain syndrome (principal); M51.369 Other intervertebral disc degeneration, lumbar region without mention of lumbar back pain or lower extremity pain; M47.816 Spondylosis without myelopathy or radiculopathy, lumbar region
CPT/HCPCS: 99203

== ENCOUNTER → 2025-07-14 11:21 | Outpatient (BNVA) | payer OTHER, SELFPAY | PROVIDERS: Visit Provider Anesthesiology | DX: G89.4 Chronic pain syndrome (principal); M47.816 Spondylosis without myelopathy or radiculopathy, lumbar region; M51.369 Other intervertebral disc degeneration, lumbar region without mention of lumbar back pain or lower extremity pain | CPT/HCPCS: 99202 ==